=== PATIENT | female | born 1975 | race Caucasian/White ===

== ENCOUNTER → 2017-08-04 12:03 | Outpatient (CLI) | payer MEDICAID, SELFPAY ==
[2017-08-04 15:01] LABS: ALB/GLOB Ratio 0.8 RATIO (0.9-2.4); AST(SGOT) 16 U/L (15-37); Alanine Aminotransfer ALT/SGPT 27 U/L (13-56); Albumin, Serum 3.1 g/dL (3.2-5.0); Alkaline Phosphatase 51 U/L (45-117); Anion Gap 10 (5-15); BUN 5 mg/dL (7-18); BUN/Creat Ratio 9.7 RATIO (10-20); Calcium,Total 8.2 mg/dL (8.5-10.1); Chloride 106 mmol/L (98-107); Creatinine, Serum 0.52 mg/dL (0.55-1.02); EST Glomerular Filtration Rate 138 mL/min (>60); Est Glom Filt Rate - Afr Amer 168 mL/min (>60); Globulin 3.8 g/dL (2.2-4.2); Glucose 134 mg/dL (74-106); Potassium 3.1 mmol/L (3.5-5.1); Protein, Total 6.9 g/dL (6.4-8.2); Sodium Level 138 mmol/L (136-145)
== END ==
PROVIDERS: Visit Provider Obstetrics & Gynecology
DX: O10.011 Pre-existing essential hypertension complicating pregnancy, first trimester (principal)
CPT/HCPCS: 36415; 80053

== ENCOUNTER → 2017-08-06 00:08 | Outpatient (CLI) | payer MEDICAID, SELFPAY ==
[2017-08-06 01:37] LABS: Urine Protein (24 Hour) < 6.0 mg/dL (<11.9)
[2017-08-06 07:17] LABS: 24HR. UA Prot. Total Volume 2950 mL
== END ==
PROVIDERS: Family Provider Family Medicine; PCP Family Medicine; Visit Provider Obstetrics & Gynecology
DX: O10.011 Pre-existing essential hypertension complicating pregnancy, first trimester (principal); Z3A.00 Weeks of gestation of pregnancy not specified

== ENCOUNTER → 2017-08-15 13:04 | Outpatient (CLI) | payer MEDICAID, SELFPAY ==
[2017-08-15 14:08] LABS: Hematocrit 38.6 % (37-47); Hemoglobin 12.8 g/dl (12.0-15.0); Mean Corp Hgb Conc 33.2 g/gl (32-36); Mean Corpuscular Hgb 29.2 pg (27.0-32.0); Mean Corpuscular Volume 87.9 fL (81-99); Mean Platelet Vol. 9.7 fl (6.2-12.0); Platelet Count 254 K/mm3 (150-450); RBC Distribution Width CV 13.6 % (11.6-14.6); RBC Distribution Width SD 43.4 fl (35.1-43.9); Red Blood Count 4.39 M/mm3 (4.2-5.4); White Blood Count 10.4 K/mm3 (4.4-11.0)
[2017-08-15 14:09] LABS: Scan Indicated on CBC? Y/N NO
[2017-08-15 14:16] LABS: Glucose Challenge Gest 1H 50g 184 mg/dL (70-140); Potassium 3.2 mmol/L (3.5-5.1)
== END ==
PROVIDERS: Visit Provider Obstetrics & Gynecology
DX: O10.012 Pre-existing essential hypertension complicating pregnancy, second trimester (principal); Z3A.00 Weeks of gestation of pregnancy not specified
CPT/HCPCS: 36415; 82950; 84132; 85027

== ENCOUNTER 2017-08-21 20:51 | Emergency (ER) | payer MEDICAID, SELFPAY ==
[2017-08-21 20:52] VITALS: BP 147/88; PULSE 99; RESP 16; TEMP 37; O2SAT 98; BMI 35.5
--- NOTE | 2017-08-21 20:55 | EKG12_ITS ---
Test Reason : PALP Blood Pressure : / mmHG Vent. Rate : 087 BPM Atrial Rate : 087 BPM P-R Int : 128 ms QRS Dur : 088 ms QT Int : 388 ms P-R-T Axes : 063 032 027 degrees QTc Int : 466 ms Normal sinus rhythm Normal ECG Confirmed by ITA VICENTE MD ([id number]), photograph editor ARACELIS GREGORY ([id number] on 08/23/2017 3:30:35 PM Referred By: Confirmed By:ITA VICENTE MD
--- NOTE | 2017-08-21 21:05 | RAD_ITS ---
STUDY: X-RAY CHEST REASON FOR EXAM: Female, 42 years old. Palpitations TECHNIQUE: Single AP portable view of the chest. COMPARISON: None. FINDINGS: The lungs are clear and expanded. There is no demonstrated pleural abnormality. Normal size heart. Normal mediastinum and jackie. Normal visualized pulmonary arteries. Normal visualized aortic arch and descending thoracic aorta. Normal visualized thoracic spine. Normal visualized ribs, clavicles, and shoulders. There is no demonstrated abnormality of the visualized soft tissue structures of the upper abdomen. RAD/Chest 1 View (Portable) IMPRESSION: No acute cardiopulmonary disease. Electronically Signed: Bayron Keyes DO at 21:38 EDT , Service support ,
[2017-08-21 22:06] LABS: Absolute Neutrophil Count 9.6 X10^3/uL (2.0-7.7); Basophil# 0.02 X10^3/uL; Basophil% 0.1 % (0-1); Eosinophil# 0.16 X10^3/uL; Eosinophils% 1.2 % (0-5); Hematocrit 38.3 % (37-47); Hemoglobin 12.7 g/dl (12.0-15.0); Lymphocyte % 20.2 % (19-41); Mean Corp Hgb Conc 33.2 g/gl (32-36); Mean Corpuscular Hgb 29.2 pg (27.0-32.0); Mean Platelet Vol. 9.7 fl (6.2-12.0); Neutrophil # 9.62 X10^3/uL (2.7-7.7); Neutrophil % 72.1 % (47-70); Platelet Count 270 K/mm3 (150-450); RBC Distribution Width CV 13.5 % (11.6-14.6); RBC Distribution Width SD 43.5 fl (35.1-43.9); Red Blood Count 4.35 M/mm3 (4.2-5.4); White Blood Count 13.4 K/mm3 (4.4-11.0)
[2017-08-21 22:14] LABS: POSITIVE COUNT NO; POSITIVE DIFFERENTIAL NO; POSITIVE MORPHOLOGY NO
[2017-08-21 22:28] LABS: Anion Gap 8 (5-15); BUN 8 mg/dL (7-18); BUN/Creat Ratio 13.6 RATIO (10-20); Calcium,Total 8.8 mg/dL (8.5-10.1); Chloride 108 mmol/L (98-107); Creatinine, Serum 0.59 mg/dL (0.55-1.02); EST Glomerular Filtration Rate 119 mL/min (>60); Est Glom Filt Rate - Afr Amer 144 mL/min (>60); Estimated Creatinine Clearance 111.77 ml/min; Glucose 148 mg/dL (74-106); Potassium 3.4 mmol/L (3.5-5.1); Sodium Level 138 mmol/L (136-145)
[2017-08-21 23:01] LABS: D-Dimer Quantitative (DVT/PE) < 0.27 FEU/ug/m (0.27-0.49)
--- NOTE | 2017-08-22 00:39 | ED.VISSUMM ---
- ER Visit Summary Date of Service: 08/22/17 Chief Complaint: Palpitations, abdominal cramping History of Present Illness: The patient is a 42 F G 10 P5 16 week gestation presents with transient palpitations this afternoon. Also abdominal cramping. Denies trauma. Denies urinary symptoms. No vaginal bleeding or discharge. No chest pains. Complains of bilateral tingling of the hands digits 1 through 3. Similar symptoms with her other . Denies any dyspnea. Nonproductive cough. Tobacco history states she is quitting. Patient gestational hypertension on nifedipine 30 mg and also on a baby aspirin followed by Dr. Alejo. No other complaints. Physical Examination: General: Alert and oriented ?3, no acute distress HEENT: Normocephalic, atraumatic. Moist mucosa membranes Neck: supple, nontender. Cardiovascular: Regular rate and rhythm, no murmurs Respiratory: Normal breath sounds, symmetric, no distress Abdomen: Soft, nontender, nondistended Extremities: Nontender, no edema, pulses intact ?4. Positive Phalen's bilaterally. Neuro: no focal neurological deficits. Test Results: EKG sinus rate of 87, no ST or T-wave changes. WBC 13.4. Creatinine 0.5. Potassium 3.4. UA negative for infection. Troponin negative. D-dimer negative. Chest x-ray negative. Emergency Department Course and Treatment: Patient had initiated by triage workup. EKG sinus rate [address] or T-wave changes. heart tones obtained was 164. Labs noted a slight white count 13.4. Urine and chest x-ray negative for infection. After obtaining heart tones from nursing, patient decided she wanted to leave. She labs were already discussed with the patient. She did report elevated blood pressure, in triage 147/88. Gestational hypertension she is on nifedipine. Discussed with patient she will need to follow-up with her OB for adjustments as needed. Patient understands. She left without paperwork. Treatment Plan: [] Disposition: Discharge Impression: 1. Palpitations 2. Elevated blood pressure 3. Second trimester This note was generated with [employer], [employer] software. It may contain incorrect words, spelling, and punctuation that were not noted in review of the chart prior to signing ED Disposition - Plan for ED Patient: Disposition: Home or Assisted Living Chief Complaint: Palpitations Diagnosis: Palpitations, Elevated blood pressure affecting in second trimester, antepartum Instructions: ED Palpitations Referrals: Oswaldo Marroquin MD [Primary Care Provider] -
[2017-08-22 01:28] LABS: Bacteria 0 SEEN /hpf (None Seen); Mucous, Urine 0 SEEN /hpf (<or=2+); Red Blood Cells-Urine 0 SEEN /hpf (0-5); White Blood Cells 0 SEEN /hpf (0-5)
[2017-08-22 01:33] LABS: Color, Urine Yellow (Yellow); Glucose, Dipstick 50 mg/dl (Normal); Ketone-Dipstick Negative (Negative); Leukocyte Esterase-Dipstick Negative /ul (Negative); Nitrite-Dipstick Negative (Negative); Occult Blood-Urine 25 /ul (Negative); Protein-Dipstick Negative (Negative); Specific Gravity, Urine 1.015 (1.002-1.030); Urine Bilirubin Dipstick Negative (Negative); Urine Clarity Clear (Clear); Urine Urobilinogen Normal (Normal); Urine pH 6.5 (5.0 - 8.0)
[2017-08-22 01:39] LABS: Squamous Epithelial Cells - UA 10-25 SEEN /hpf (5-10)
[2017-08-22 01:46] VITALS: BP 138/79; PULSE 84; RESP 16; O2SAT 97; O2SAT 98
--- NOTE | 2017-08-22 01:49 | ED.RN ---
PT STATES SHE IS TIRED AND WANTS TO GO HOME. SHE WANTED TO HEAR HER BABY'S HEARTBEAT FIRST AND THEN IS LEAVING BEFORE HEARING ANY OF HER RESULTS.
[2017-08-22 01:53] VITALS: BP 148/87; PULSE 82; RESP 16; O2SAT 97
== END 2017-08-22 01:52 | disposition home or self-care (01) ==
LOC: ED 08-22 00:46
PROVIDERS: Emergency Provider Emergency Medicine; Family Provider Family Medicine; PCP Family Medicine
DX: O26.892 Other specified pregnancy related conditions, second trimester (principal); R00.2 Palpitations; O13.2 Gestational [pregnancy-induced] hypertension without significant proteinuria, second trimester; O09.522 Supervision of elderly multigravida, second trimester; O99.332 Smoking (tobacco) complicating pregnancy, second trimester; Z3A.16 16 weeks gestation of pregnancy
CPT/HCPCS: 71045; 80048; 81001; 84484; 85025; 85379; 93005; 99284; A4216

== ENCOUNTER → 2017-09-04 09:49 | Outpatient (CLI) | payer MEDICAID, SELFPAY ==
[2017-09-04 11:04] LABS: Glucose GTT-Gestation. Fasting 88 mg/dL (<105)
[2017-09-04 11:16] LABS: Potassium 3.5 mmol/L (3.5-5.1)
[2017-09-04 12:01] LABS: Glucose GTT-Gestational 1 Hr 216 mg/dL (<190)
[2017-09-04 12:52] LABS: Glucose GTT-Gestational 2 Hr 215 mg/dL (<165)
[2017-09-04 15:13] LABS: Glucose GTT-Gestational 3 Hr 64 L (<145)
== END ==
PROVIDERS: Family Provider Family Medicine; PCP Family Medicine; Visit Provider Obstetrics & Gynecology
DX: O24.912 Unspecified diabetes mellitus in pregnancy, second trimester (principal); E87.6 Hypokalemia
CPT/HCPCS: 36415; 82951; 82952; 84132

== ENCOUNTER 2017-09-14 06:59 | Emergency (ER) | payer MEDICAID, SELFPAY ==
[2017-09-14] VITALS (7 sets, daily range): BP systolic 118–163; BP diastolic 65–78; PULSE 70–90; RESP 16–22; TEMP 37.2; O2SAT 95–100; BMI 36.1
[2017-09-14 07:15] LABS: Bedside Glucose 121 mg/dL (70-110)
--- NOTE | 2017-09-14 07:29 | ED.VISSUMM ---
- ER Visit Summary Date of Service: 09/14/17 Chief Complaint: [] Facial numbness, History of Present Illness: The patient is a 42 F [] presents with facial numbness on the left side beginning 2 hours prior to arrival. Patient reports she is a smoker, at 19 weeks with diagnosed gestational diabetes and gestational hypertension. She is on nifedipine for her gestational hypertension started by her BOAT DETAILER. with 3 miscarriages and one stillborn (twins). She denies any head injury or falls. She reports her facial numbness has subsided prior to arrival. She denies any abdominal pain. She denies headache. She denies blurred vision. She denies lower extremity edema. Physical Examination: [] BP 163/76, heart rate 90, respiratory rate 16, pulse ox 99% on room air, which are 98.9. Morbidly obese female no acute distress. Cardiovascular exam is regular rate and rhythm. Lungs are clear to auscultation. Abdomen is soft, gravid, nontender. No lower extremity edema. NIH score is 0. Patient had plus 5 out of 5 bilateral upper and lower muscle strength. Sensation equally across the face, bilateral upper extremity, bilateral lower extremities. Test Results: [] heart rate: 144 Labs: CBC reveals white blood cell count 13.8 otherwise within normal limits. Electrolytes returned normal with exception of a potassium of 3.1. Glucose was 87. LFTs were normal. LDH was normal. Urinalysis was normal with no proteinuria. Emergency Department Course and Treatment: [] Patient received intravenous Zofran for nausea relief. She received a 1 L normal saline bolus. Because of the neurologic symptoms in the history of gestational hypertension she was given 2 g of intravenous magnesium. On repeat serial examinations her blood pressure ultimately dropped to 121/73. She became completely asymptomatic. She was given 40 mEq orally of potassium chloride. Hydralazine was ordered intravenously however was not administered secondary to the significant improvement in blood pressure with the magnesium. heart rate was within normal limits at 144. Patient was counseled regarding her diagnostic and laboratory findings and was reassured as she was slightly anxious about her blood pressure and symptoms. She is amenable to discharge and close follow-up. I attempted to contact the patient's BOAT DETAILER, Dr. Sanchez. I spoke with the covering physician Dr. Suazo. She will pass along the information to the BOAT DETAILER and provided no further suggestions for treatment or management. Treatment Plan: [] Follow-up with BOAT DETAILER, return if symptoms recur/worsen. Disposition: [] Discharge, stable. Impression: [] Gestational hypertension Hypokalemia Nausea Gestational diabetes This note was generated with Get[employer] Cloudation software. It may contain incorrect words, spelling, and punctuation that were not noted in review of the chart prior to signing ED Disposition - Plan for ED Patient: Chief Complaint: Numb/Ting Referrals: Oswaldo Marroquin MD [Primary Care Provider] -
--- NOTE | 2017-09-14 07:34 | ED.DCSUM_ITS ---
- ER Visit Summary Date of Service: 09/14/17 Chief Complaint: [] Facial numbness, History of Present Illness: The patient is a 42 F [] presents with facial numbness on the left side beginning 2 hours prior to arrival. Patient reports she is a smoker, at 19 weeks with diagnosed gestational diabetes and gestational hypertension. She is on nifedipine for her gestational hypertension started by her PROOF PLATE MAKER. with 3 miscarriages and one stillborn (twins). She denies any head injury or falls. She reports her facial numbness has subsided prior to arrival. She denies any abdominal pain. She denies headache. She denies blurred vision. She denies lower extremity edema. Physical Examination: [] BP 163/76, heart rate 90, respiratory rate 16, pulse ox 99% on room air, which are 98.9. Morbidly obese female no acute distress. Cardiovascular exam is regular rate and rhythm. Lungs are clear to auscultation. Abdomen is soft, gravid, nontender. No lower extremity edema. NIH score is 0. Patient had plus 5 out of 5 bilateral upper and lower muscle strength. Sensation equally across the face, bilateral upper extremity, bilateral lower extremities. Test Results: [] heart rate: 144 Labs: CBC reveals white blood cell count 13.8 otherwise within normal limits. Electrolytes returned normal with exception of a potassium of 3.1. Glucose was 87. LFTs were normal. LDH was normal. Urinalysis was normal with no proteinuria. Emergency Department Course and Treatment: [] Patient received intravenous Zofran for nausea relief. She received a 1 L normal saline bolus. Because of the neurologic symptoms in the history of gestational hypertension she was given 2 g of intravenous magnesium. On repeat serial examinations her blood pressure ultimately dropped to 121/73. She became completely asymptomatic. She was given 40 mEq orally of potassium chloride. Hydralazine was ordered intravenously however was not administered secondary to the significant improvement in blood pressure with the magnesium. heart rate was within normal limits at 144. Patient was counseled regarding her diagnostic and laboratory findings and was reassured as she was slightly anxious about her blood pressure and symptoms. She is amenable to discharge and close follow-up. I attempted to contact the patient's PROOF PLATE MAKER, Dr. Sanchez. I spoke with the covering physician Dr. Suazo. She will pass along the information to the PROOF PLATE MAKER and provided no further suggestions for treatment or management. Treatment Plan: [] Follow-up with PROOF PLATE MAKER, return if symptoms recur/worsen. Disposition: [] Discharge, stable. Impression: [] Gestational hypertension Hypokalemia Nausea Gestational diabetes This note was generated with [employer]ive Biasation software. It may contain incorrect words, spelling, and punctuation that were not noted in review of the chart prior to signing ED Disposition - Plan for ED Patient: Chief Complaint: Numb/Ting Referrals: Oswaldo Marroquin MD [Primary Care Provider] -
[2017-09-14 07:38] LABS: Mucous, Urine 0 SEEN /hpf (<or=2+); Red Blood Cells-Urine 0 SEEN /hpf (0-5); White Blood Cells 0 SEEN /hpf (0-5)
[2017-09-14 07:40] LABS: Color, Urine Yellow (Yellow); Glucose, Dipstick Normal (Normal); Ketone-Dipstick Negative (Negative); Leukocyte Esterase-Dipstick Negative /ul (Negative); Nitrite-Dipstick Negative (Negative); Occult Blood-Urine 10 /ul (Negative); Protein-Dipstick Negative (Negative); Specific Gravity, Urine 1.015 (1.002-1.030); Urine Bilirubin Dipstick Negative (Negative); Urine Clarity Clear (Clear); Urine Urobilinogen Normal (Normal)
[2017-09-14 07:47] LABS: Bacteria RARE /hpf (None Seen); Squamous Epithelial Cells - UA 0-5 SEEN /hpf (5-10)
[2017-09-14] MEDS: 0.9% Normal Saline 1,000 ML 1000 ML IV (07:48)
--- NOTE | 2017-09-14 07:56 | ED.RN ---
PER DR SIMON HOLD APRESOLINE AT THIS TIME
[2017-09-14 08:00] LABS: Absolute Lymphocyte Count 1.71 X10^3/ul (0.83-4.51); Basophil# 0.02 X10^3/uL; Basophil% 0.1 % (0-1); Eosinophil# 0.12 X10^3/uL; Eosinophils% 0.9 % (0-5); Hematocrit 37.5 % (37-47); Hemoglobin 12.8 g/dl (12.0-15.0); Lymphocyte # 1.71 X10^3/ul (4.0); Lymphocyte % 12.4 % (19-41); Mean Corp Hgb Conc 34.1 g/gl (32-36); Mean Corpuscular Hgb 29.8 pg (27.0-32.0); Mean Corpuscular Volume 87.4 fL (81-99); Mean Platelet Vol. 9.4 fl (6.2-12.0); Monocyte# 0.94 X10^3/uL; Monocyte% 6.8 % (0-10); Neutrophil # 10.95 X10^3/uL (2.7-7.7); Neutrophil % 79.3 % (47-70); POSITIVE COUNT NO; POSITIVE DIFFERENTIAL NO; POSITIVE MORPHOLOGY NO; Platelet Count 251 K/mm3 (150-450); RBC Distribution Width CV 13.5 % (11.6-14.6); RBC Distribution Width SD 42.9 fl (35.1-43.9); Red Blood Count 4.29 M/mm3 (4.2-5.4); White Blood Count 13.8 K/mm3 (4.4-11.0)
[2017-09-14 08:15] LABS: ALB/GLOB Ratio 0.8 RATIO (0.9-2.4); AST(SGOT) 14 U/L (15-37); Alanine Aminotransfer ALT/SGPT 28 U/L (13-56); Albumin, Serum 2.8 g/dL (3.2-5.0); Alkaline Phosphatase 45 U/L (45-117); Anion Gap 7 (5-15); BUN 4 mg/dL (7-18); BUN/Creat Ratio 11.7 RATIO (10-20); Calcium,Total 8.2 mg/dL (8.5-10.1); Chloride 108 mmol/L (98-107); Creatinine, Serum 0.34 mg/dL (0.55-1.02); EST Glomerular Filtration Rate 222 mL/min (>60); Est Glom Filt Rate - Afr Amer 268 mL/min (>60); Estimated Creatinine Clearance 193.96 ml/min; Globulin 3.7 g/dL (2.2-4.2); Glucose 87 mg/dL (74-106); LDH 114 U/L (84-246); Potassium 3.1 mmol/L (3.5-5.1); Protein, Total 6.5 g/dL (6.4-8.2); Sodium Level 139 mmol/L (136-145); Total Bilirubin < 0.10 mg/dL (0.20-1.00)
--- NOTE | 2017-09-14 09:37 | ED.DEP ---
ED Disposition - Plan for ED Patient: Disposition: Home or Assisted Living Chief Complaint: Numb/Ting Instructions: Controlling High Blood Pressure, ED Potassium Deficiency Referrals: Oswaldo Marroquin MD [Primary Care Provider] -
== END 2017-09-14 09:57 | disposition home or self-care (01) ==
PROVIDERS: Emergency Provider Emergency Medicine; Family Provider Family Medicine; PCP Family Medicine
DX: O13.2 Gestational [pregnancy-induced] hypertension without significant proteinuria, second trimester (principal); O24.419 Gestational diabetes mellitus in pregnancy, unspecified control; E87.6 Hypokalemia; R11.0 Nausea; O99.212 Obesity complicating pregnancy, second trimester; E66.01 Morbid (severe) obesity due to excess calories; O09.522 Supervision of elderly multigravida, second trimester; O99.332 Smoking (tobacco) complicating pregnancy, second trimester; F17.200 Nicotine dependence, unspecified, uncomplicated; Z3A.19 19 weeks gestation of pregnancy
CPT/HCPCS: 80053; 81001; 82962; 83615; 85025; 96365; 96366; 99283; J7030; A4216

== ENCOUNTER 2017-11-04 10:55 | Outpatient (CLI) | payer MEDICAID, SELFPAY ==
[2017-11-04 11:09] VITALS: BMI 35.9
--- NOTE | 2017-11-04 12:04 | OB.TRI.NOTE ---
- Problem List (1) Decreased movement Status: Acute Qualifiers: Fetus number: single or unspecified fetus Trimester: second trimester Qualified Code(s): O36.8120 - Decreased movements, second trimester, not applicable or unspecified (2) 26 weeks gestation of Status: Acute History of Present Illness Date of Service: 11/04/17 Was patient seen by the physician?: No Reason For Visit: DECREASED MOVEMNET Date of Service: 11/04/17 Final ROYER: 02/07/18 Gestational age: 26 Weeks and 3 Days History of Present Illness: 42yo @ 26 3/7 wga presents with c/o decreased movement. No other complaints. Home Medications Medication Instructions Recorded Nifedipine [Nifedipine ER] 30 mg PO DAILY 09/14/17 [id number]/FA/Omega3/Dha/Fish Oil 2 each PO DAILY 09/14/17 [ Gummies] Allergies cefazolin sodium [From Ancef] Allergy (Verified 09/14/17 07:02) Hives - Pertinent Past Medical History Medical History: Past Medical History (Last Updated 11/04/17 @ 12:14 by Obdulia Suazo MD) Chronic hypertension (Acute) Chronic hypertension affecting Gestational diabetes mellitus (GDM) Surgical History: Past Surgical History (Last Updated 11/04/17 @ 12:14 by Obdulia Suazo MD) Previous section Physical Exam Vitals: BP 121/64 HR 82 NST - FHR Rate Baby A Baseline: 145 Variability:: Moderate Accelerations:: 15 x 15 Decelerations:: None NST Reactive:: Yes FHR Category:: Category I Uterine Activity:: none Impression/Plan 42yo @ 26 3/7wga with decreased movement, Cat II FHR -FHR AGA, -Patient reported movement after arrival -Will d/c home, kick count sheet reviewed by nurse
--- NOTE | 2017-11-04 12:16 | OB.TRI.HP_ITS ---
- Problem List (1) Decreased movement Status: Acute Qualifiers: Fetus number: single or unspecified fetus Trimester: second trimester Qualified Code(s): O36.8120 - Decreased movements, second trimester, not applicable or unspecified (2) 26 weeks gestation of Status: Acute History of Present Illness Date of Service: 11/04/17 Was patient seen by the physician?: No Reason For Visit: DECREASED MOVEMNET Date of Service: 11/04/17 Final ROYER: 02/07/18 Gestational age: 26 Weeks and 3 Days History of Present Illness: 42yo @ 26 3/7 wga presents with c/o decreased movement. No other complaints. Home Medications Medication Instructions Recorded Nifedipine [Nifedipine ER] 30 mg PO DAILY 09/14/17 [id number]/FA/Omega3/Dha/Fish Oil 2 each PO DAILY 09/14/17 [ Gummies] Allergies cefazolin sodium [From Ancef] Allergy (Verified 09/14/17 07:02) Hives - Pertinent Past Medical History Medical History: Past Medical History (Last Updated 11/04/17 @ 12:14 by Obdulia Suazo MD) Chronic hypertension (Acute) Chronic hypertension affecting Gestational diabetes mellitus (GDM) Surgical History: Past Surgical History (Last Updated 11/04/17 @ 12:14 by Obdulia Suazo MD ) Previous section Physical Exam Vitals: BP 121/64 HR 82 NST - FHR Rate Baby A Baseline: 145 Variability:: Moderate Accelerations:: 15 x 15 Decelerations:: None NST Reactive:: Yes FHR Category:: Category I Uterine Activity:: none Impression/Plan 42yo @ 26 3/7wga with decreased movement, Cat II FHR -FHR AGA, -Patient reported movement after arrival -Will d/c home, kick count sheet reviewed by nurse
== END 2017-11-04 12:15 | disposition home or self-care (01) ==
LOC: LAB 11:03 → WP 11:04
PROVIDERS: Family Provider Family Medicine; PCP Family Medicine; Visit Provider Obstetrics & Gynecology
DX: O36.8120 Decreased fetal movements, second trimester, not applicable or unspecified (principal); O34.219 Maternal care for unspecified type scar from previous cesarean delivery; Z86.32 Personal history of gestational diabetes; Z3A.26 26 weeks gestation of pregnancy
CPT/HCPCS: 59025; 59050; 99218; G0378

== ENCOUNTER → 2017-11-15 11:50 | Outpatient (CLI) | payer MEDICAID, SELFPAY ==
--- NOTE | 2017-11-15 11:50 | DT_ITS ---
This patient was seen during an EMR downtime November 13, 2017 - November 20, 2017. This patient may have a combination of paper and electronic documentation or all paper documentation. All documentation is viewable within the e-chart portion of [employer] for each patient visit.
== END ==
PROVIDERS: Family Provider Family Medicine; PCP Family Medicine; Visit Provider Obstetrics & Gynecology
DX: Z34.83 Encounter for supervision of other normal pregnancy, third trimester (principal)
CPT/HCPCS: 36415; 86850

== ENCOUNTER 2018-01-01 17:40 | Outpatient (CLI) | payer MEDICARE, MEDICAID, SELFPAY ==
[2018-01-01 19:15] LABS: Hematocrit 36.1 % (37-47); Hemoglobin 11.8 g/dl (12.0-15.0); Mean Corp Hgb Conc 32.7 g/gl (32-36); Mean Corpuscular Hgb 26.4 pg (27.0-32.0); Mean Corpuscular Volume 80.8 fL (81-99); Mean Platelet Vol. 9.7 fl (6.2-12.0); Platelet Count 225 K/mm3 (150-450); RBC Distribution Width CV 14.3 % (11.6-14.6); RBC Distribution Width SD 42.5 fl (35.1-43.9); Red Blood Count 4.47 M/mm3 (4.2-5.4); White Blood Count 15.1 K/mm3 (4.4-11.0)
[2018-01-01 19:20] LABS: Scan Indicated on CBC? Y/N NO
[2018-01-01 19:23] LABS: AST(SGOT) 10 U/L (15-37); Alanine Aminotransfer ALT/SGPT 11 U/L (13-56); Creatinine, Serum 0.39 mg/dL (0.55-1.02); EST Glomerular Filtration Rate 189 mL/min (>60); Est Glom Filt Rate - Afr Amer 228 mL/min (>60); Uric Acid 3.8 mg/dL (2.6-6.0)
[2018-01-01 19:23] LABS: Protein, Urine (Random) 12.8 mg/dL (<11.9); Protein:Creat Ratio 309 mg/g CRE (0-200)
[2018-01-01 19:27] LABS: Partial Thromboplast Time 29.3 Seconds (24.1-36.2); Prothrombin Time (Protime)PT. 13.6 SECONDS (11.7-14.9)
[2018-01-01 20:04] LABS: Amphetamine Urine VISTA NEGATIVE (<1000 ng/mL); Barbiturate Urine VISTA NEGATIVE (< 200 ng/mL); Benzodiazepine Urine VISTA NEGATIVE (< 200 ng/mL); Cocaine Urine VISTA NEGATIVE (< 300 ng/mL); Ecstacy Urine VISTA NEGATIVE (< 500 ng/mL); Methadone Urine VISTA NEGATIVE (< 300 ng/mL); PCP Urine VISTA NEGATIVE (< 25 ng/mL); THC Urine VISTA NEGATIVE (< 50 ng/mL); Vista UDS pH Range 7
[2018-01-01 20:52] VITALS: BMI 35.9
--- NOTE | 2018-01-04 08:44 | OB.TRI.NOTE ---
History of Present Illness Date of Service: 01/01/18 Was patient seen by the physician?: No Reason For Visit: R/O LABOR Date of Service: 01/01/18 Final ROYER: 02/07/18 Gestational age: 34 Weeks and 5 Days History of Present Illness: 34+ week intrauterine presents with transient contractions. Also having problems with cramping back pain and headache. Prior for placental abruption and desires this . care remarkable for smoking and advanced maternal age. She also has gestational diabetes which is diet controlled. Allergies cefazolin sodium [From Anc] Allergy (Verified 09/14/17 07:02) Hives - Pertinent Past Medical History Medical History: Past Medical History (Last Updated 11/04/17 @ 12:14 by Obdulia Suazo MD) Chronic hypertension (Acute) Chronic hypertension affecting Gestational diabetes mellitus (GDM) Surgical History: Past Surgical History (Last Updated 11/04/17 @ 12:14 by Obdulia Suazo MD) Previous section NST - FHR Rate Baby A NST Reactive:: Yes FHR Category:: Category I Impression/Plan 35+ week with transient contractions. PIH labs okay. Blood pressures okay. Cervix nonthreatening and no change after observation. Reactive nonstress test. Will release to home with routine instructions.
--- NOTE | 2018-01-04 08:50 | OB.TRI.HP_ITS ---
History of Present Illness Date of Service: 01/01/18 Was patient seen by the physician?: No Reason For Visit: R/O LABOR Date of Service: 01/01/18 Final ROYER: 02/07/18 Gestational age: 34 Weeks and 5 Days History of Present Illness: 34+ week intrauterine presents with transient contractions. Also having problems with cramping back pain and headache. Prior for placental abruption and desires this . care remarkable for smoking and advanced maternal age. She also has gestational diabetes which is diet controlled. Allergies cefazolin sodium [From Anc] Allergy (Verified 09/14/17 07:02) Hives - Pertinent Past Medical History Medical History: Past Medical History (Last Updated 11/04/17 @ 12:14 by Obdulia Suazo MD) Chronic hypertension (Acute) Chronic hypertension affecting Gestational diabetes mellitus (GDM) Surgical History: Past Surgical History (Last Updated 11/04/17 @ 12:14 by Obdulia Suazo MD ) Previous section NST - FHR Rate Baby A NST Reactive:: Yes FHR Category:: Category I Impression/Plan 35+ week with transient contractions. PIH labs okay. Blood pressures okay. Cervix nonthreatening and no change after observation. Reactive nonstress test. Will release to home with routine instructions.
== END 2018-01-01 21:15 | disposition home or self-care (01) ==
LOC: WPOUT 18:45 → WP 18:45
PROVIDERS: Family Provider Family Medicine; PCP Family Medicine; Visit Provider Obstetrics & Gynecology
DX: O34.219 Maternal care for unspecified type scar from previous cesarean delivery (principal); Z3A.34 34 weeks gestation of pregnancy; O99.333 Smoking (tobacco) complicating pregnancy, third trimester; O09.523 Supervision of elderly multigravida, third trimester; O24.410 Gestational diabetes mellitus in pregnancy, diet controlled
CPT/HCPCS: 59025; 59050; 80307; 82565; 82570; 84156; 84450; 84460; 84550; 85027; 85610; 85730; 99218; G0378

== ENCOUNTER 2018-01-08 16:40 | Outpatient (CLI) | payer MEDICARE, MEDICAID, SELFPAY ==
[2018-01-08 16:45] VITALS: BMI 36.6
[2018-01-08 17:44] LABS: Hematocrit 36.6 % (37-47); Hemoglobin 12.3 g/dl (12.0-15.0); Mean Corp Hgb Conc 33.6 g/gl (32-36); Mean Corpuscular Hgb 26.7 pg (27.0-32.0); Mean Corpuscular Volume 79.4 fL (81-99); Mean Platelet Vol. 10.1 fl (6.2-12.0); Platelet Count 281 K/mm3 (150-450); RBC Distribution Width CV 14.5 % (11.6-14.6); RBC Distribution Width SD 41.4 fl (35.1-43.9); Red Blood Count 4.61 M/mm3 (4.2-5.4); White Blood Count 16.1 K/mm3 (4.4-11.0)
[2018-01-08 17:49] LABS: Scan Indicated on CBC? Y/N NO
[2018-01-08 17:59] LABS: AST(SGOT) 12 U/L (15-37); Alanine Aminotransfer ALT/SGPT 14 U/L (13-56); Creatinine, Serum 0.26 mg/dL (0.55-1.02); EST Glomerular Filtration Rate 305 mL/min (>60); Est Glom Filt Rate - Afr Amer 369 mL/min (>60); Estimated Creatinine Clearance 253.64 ml/min; Uric Acid 3.4 mg/dL (2.6-6.0)
[2018-01-08 18:00] LABS: Partial Thromboplast Time 31.4 Seconds (24.1-36.2)
--- NOTE | 2018-01-08 18:29 | NURSING ---
pt evaluated in office by Dr Alejo prior to coming to the floor
--- NOTE | 2018-01-10 08:22 | OB.TRI.NOTE ---
History of Present Illness Date of Service: 01/08/18 Was patient seen by the physician?: No Reason For Visit: R/O PIH Date of Service: 01/08/18 Final ROYER: 02/07/18 Gestational age: 35 Weeks and 5 Days History of Present Illness: 35+ week IUP with elevated BPs in office. Pt anxious as she continues to have difficulty finding housing for her family and is residing at [facility]. Good movement. PNC remarkable for diet controlled GDM but has not been checking blood sugars the past few days. Allergies cefazolin sodium [From Anc] Allergy (Verified 09/14/17 07:02) Hives - Pertinent Past Medical History Medical History: Past Medical History (Last Updated 11/04/17 @ 12:14 by Obdulia Suazo MD) Chronic hypertension (Acute) Chronic hypertension affecting Gestational diabetes mellitus (GDM) Surgical History: Past Surgical History (Last Updated 11/04/17 @ 12:14 by Obdulia Suazo MD) Previous section NST - FHR Rate Baby A NST Reactive:: Yes FHR Category:: Category I Impression/Plan 35+ week IUP with elevated BPs in office. Normal on L and D and PIH labs normal. Reactive NST. Release with routine follow-up.
--- NOTE | 2018-01-10 08:25 | OB.TRI.HP_ITS ---
History of Present Illness Date of Service: 01/08/18 Was patient seen by the physician?: No Reason For Visit: R/O PIH Date of Service: 01/08/18 Final ROYER: 02/07/18 Gestational age: 35 Weeks and 5 Days History of Present Illness: 35+ week IUP with elevated BPs in office. Pt anxious as she continues to have difficulty finding housing for her family and is residing at [facility]. Good movement. PNC remarkable for diet controlled GDM but has not been checking blood sugars the past few days. Allergies cefazolin sodium [From Anc] Allergy (Verified 09/14/17 07:02) Hives - Pertinent Past Medical History Medical History: Past Medical History (Last Updated 11/04/17 @ 12:14 by Obdulia Suazo MD) Chronic hypertension (Acute) Chronic hypertension affecting Gestational diabetes mellitus (GDM) Surgical History: Past Surgical History (Last Updated 11/04/17 @ 12:14 by Obdulia Suazo MD ) Previous section NST - FHR Rate Baby A NST Reactive:: Yes FHR Category:: Category I Impression/Plan 35+ week IUP with elevated BPs in office. Normal on L and D and PIH labs normal. Reactive NST. Release with routine follow-up.
== END 2018-01-08 18:40 | disposition home or self-care (01) ==
LOC: WPOUT 16:44 → WP 16:45
PROVIDERS: Family Provider Family Medicine; PCP Family Medicine; Visit Provider Obstetrics & Gynecology
DX: O26.893 Other specified pregnancy related conditions, third trimester (principal); R03.0 Elevated blood-pressure reading, without diagnosis of hypertension; O24.410 Gestational diabetes mellitus in pregnancy, diet controlled; O34.219 Maternal care for unspecified type scar from previous cesarean delivery; O09.523 Supervision of elderly multigravida, third trimester; Z3A.35 35 weeks gestation of pregnancy
CPT/HCPCS: 36415; 59025; 59050; 82565; 84450; 84460; 84550; 85027; 85610; 85730; 99218; G0378; G0379

== ENCOUNTER 2018-01-12 15:15 | Outpatient (CLI) | payer MEDICAID, SELFPAY ==
[2018-01-12 15:25] VITALS: BMI 37.3
[2018-01-12] MEDS: Betamethasone/Betamethasone 30 MG/5 ML Vial 12 MG IM (15:33)
--- NOTE | 2018-01-12 20:00 | OB.TRI.NOTE ---
- Problem List (1) 36 weeks gestation of Status: Acute (2) Chronic hypertension Status: Acute History of Present Illness Date of Service: 01/12/18 Was patient seen by the physician?: No Reason For Visit: CELESTONE History of Present Illness: 42yo at 36+ weeks gestation with h/o uncontrolled chronic hypertension and gestational diabetes sent from the office for Celestone for anticipated delivery in the next 7 days. Allergies cefazolin sodium [From Anc] Allergy (Verified 01/12/18 15:41) Hives - Pertinent Past Medical History Medical History: Past Medical History (Last Updated 11/04/17 @ 12:14 by Obdulia Suazo MD) Chronic hypertension (Acute) Chronic hypertension affecting Gestational diabetes mellitus (GDM) Surgical History: Past Surgical History (Last Updated 11/04/17 @ 12:14 by Obdulia Suazo MD) Previous section Impression/Plan Celestone given -Preeclamptic labs pending from office already -Pt to return in 24h for repeat Betamethasone injection
== END 2018-01-12 15:45 | disposition home or self-care (01) ==
LOC: WPOUT 15:19 → WP 15:20
PROVIDERS: Family Provider Family Medicine; PCP Family Medicine; Visit Provider Obstetrics & Gynecology
DX: O10.913 Unspecified pre-existing hypertension complicating pregnancy, third trimester (principal); O09.523 Supervision of elderly multigravida, third trimester; O34.219 Maternal care for unspecified type scar from previous cesarean delivery; O24.419 Gestational diabetes mellitus in pregnancy, unspecified control; Z3A.36 36 weeks gestation of pregnancy
CPT/HCPCS: 96372; 99218; G0378; J0702

== ENCOUNTER 2018-01-13 14:10 | Outpatient (CLI) | payer MEDICAID, SELFPAY ==
[2018-01-13 14:48] VITALS: BMI 37.3
[2018-01-13] MEDS: Betamethasone/Betamethasone 30 MG/5 ML Vial 12 MG IM (15:03)
--- NOTE | 2018-01-13 20:00 | OB.TRI.NOTE ---
- Problem List (1) 36 weeks gestation of Status: Acute (2) Chronic hypertension Status: Acute History of Present Illness Date of Service: 01/13/18 Was patient seen by the physician?: No Reason For Visit: CELESTONE SHOT Final ROYER Source: US <20 weeks Gestational age: 36+ History of Present Illness: 42yo multiparous female at 36+ weeks gestation presents for second Betamethasone injection. She has a h/o chronic hypertension and gestational diabetes. Allergies cefazolin sodium [From Ancef] Allergy (Verified 01/12/18 15:41) Hives - Pertinent Past Medical History Medical History: Past Medical History (Last Updated 11/04/17 @ 12:14 by Obdulia Suazo MD) Chronic hypertension (Acute) Chronic hypertension affecting Gestational diabetes mellitus (GDM) Surgical History: Past Surgical History (Last Updated 11/04/17 @ 12:14 by Obdulia Suazo MD) Previous section Impression/Plan Dx. chronic hypertension complicated , third trimester Celestone given d/c home
== END 2018-01-13 16:15 | disposition home or self-care (01) ==
LOC: WPOUT 14:12 → WP 17:24
PROVIDERS: Family Provider Family Medicine; PCP Family Medicine; Visit Provider Obstetrics & Gynecology
DX: O10.913 Unspecified pre-existing hypertension complicating pregnancy, third trimester (principal); O09.523 Supervision of elderly multigravida, third trimester; O34.219 Maternal care for unspecified type scar from previous cesarean delivery; O24.419 Gestational diabetes mellitus in pregnancy, unspecified control; Z3A.36 36 weeks gestation of pregnancy
CPT/HCPCS: 59025; 59050; 99218; G0378; J0702

== ENCOUNTER → 2018-01-15 16:25 | Outpatient (CLI) | payer MEDICARE, MEDICAID, SELFPAY ==
[2018-01-15 18:56] LABS: Group B Strep DNA By PCR Negative (Negative); Internal Control PASS; Probe Check PASS; Specimen Processing Control PASS
== END ==
PROVIDERS: Visit Provider Obstetrics & Gynecology
DX: Z36.85 Encounter for antenatal screening for Streptococcus B (principal)
CPT/HCPCS: 87081; 87653

== ENCOUNTER 2018-01-19 06:44 | Inpatient (IN) | payer MEDICARE, MEDICAID, SELFPAY ==
[2018-01-19] VITALS (10 sets, daily range): BP systolic 119–165; BP diastolic 60–96; PULSE 62–95; RESP 16–18; TEMP 36.4–37.2; O2SAT 93–99; BMI 36.9
[2018-01-19] MEDS: Lactated Ringers 1,000 ML 50 ML IV ×3 (07:45→16:45)
[2018-01-19 08:04] LABS: Hematocrit 37.8 % (37-47); Hemoglobin 12.1 g/dl (12.0-15.0); Mean Corpuscular Hgb 25.5 pg (27.0-32.0); Mean Corpuscular Volume 79.7 fL (81-99); Mean Platelet Vol. 10.3 fl (6.2-12.0); Platelet Count 229 K/mm3 (150-450); RBC Distribution Width CV 14.8 % (11.6-14.6); RBC Distribution Width SD 43.3 fl (35.1-43.9); Red Blood Count 4.74 M/mm3 (4.2-5.4); Scan Indicated on CBC? Y/N NO; White Blood Count 13.3 K/mm3 (4.4-11.0)
[2018-01-19] MEDS: Oxytocin 30 units/NS 500 ml 30 UNITS/500 ML IV.SOLN IV (08:05)
[2018-01-19] MEDS: Labetalol 100 MG/20 ML Vial 20 MG IV (08:19)
[2018-01-19 09:48] LABS: International Normalized Ratio 0.9; Prothrombin Time (Protime)PT. 12.6 SECONDS (11.7-14.9)
[2018-01-19 09:49] LABS: Partial Thromboplast Time 30.3 Seconds (24.1-36.2)
[2018-01-19] MEDS: Labetalol 100 MG Tablet PO (10:00)
[2018-01-19 10:06] LABS: Protein, Urine (Random) 12.2 mg/dL (<11.9); Protein:Creat Ratio 194 mg/g CRE (0-200)
[2018-01-19 10:27] LABS: AST(SGOT) 11 U/L (15-37); Alanine Aminotransfer ALT/SGPT 23 U/L (13-56); Creatinine, Serum 0.34 mg/dL (0.55-1.02); EST Glomerular Filtration Rate 225 mL/min (>60); Est Glom Filt Rate - Afr Amer 272 mL/min (>60); Estimated Creatinine Clearance 193.96 ml/min; Uric Acid 3.6 mg/dL (2.6-6.0)
[2018-01-19 10:41] LABS: Bedside Glucose 201 mg/dL (70-110)
[2018-01-19 11:35] LABS: Bedside Glucose 100 mg/dL (70-110)
[2018-01-19 13:26] LABS: Bedside Glucose 70 mg/dL (70-110)
--- NOTE | 2018-01-19 17:03 | PCM.PN.BLA ---
Progress Note LABOR INDUCTION PROGRESS NOTE [id number] female PIH, GDM induction for BPs. Epidural which was placed earlier has been dosed. Still anxious re pain and thinks she is feeling a little . Able to feel her legs. Vaelar cath induction and still in place. Have not been able to inc Pitocin as difficult to monitor FHR 2/2 body habitus. AVSS Avelar bulb deflated and removed. CX: 3/75/high/anterior moderately soft. IUPC and scalp lead placed. FHR with deep deceleration lasting less than 30 sec to 60-80s , with pt on back. Resolved with position change to L side , then to tilt to L side IFM then 140-150 with small accels. min variability. earlies with UCs. UCs approx q 5 mins A/P: 37 2/7 wk PIH. Good response of BPs to Labetalol given and now with BID dosing. epidural dosed and in place. High blood sugar, but no start of insulin 2/2 repeat blood sugar in 100's. Prodromal labor induction. Pitocin then to Avelar bulb and pitocin with AROM at time of Avelar insertion. Avelar removed to allow IUPC and scalp lead, continue Pitocin induction Anticipate .
[2018-01-19] MEDS: Oxytocin 30 units/NS 500 ml 30 UNITS/500 ML IV.SOLN 167 UNITS IV ×2 (18:06→20:30)
--- NOTE | 2018-01-19 18:49 | OP.PCM_ITS ---
Operative Report Date of Procedure: 01/19/18 PROCEDURE: Repeat C section. Bilateral tubal occlusion, Filshie clips Preoperative diagnosis: 39 wk EGA Induction of labor for PIH Prior C section, planned 3 cm. Stat C section for repetitive deep variable decelerations, nonreassuring FHT. Decreased variability. Gestational diabetes mellitus Sterilization request Postop diagnosis: 39 wk EGA Induction of labor for PIH Prior C section, planned 3 cm. Stat C section for repetitive deep variable decelerations, nonreassuring FHT. Decreased variability. Gestational diabetes mellitus Sterilization request Anesthesia: epidural, Shobha Ashby MD Surgeon: Chloé Patterson MD Pouncing Lathe Operator: Olamide Kennedy MD EBL 600 cc Complications: none Drains: Avelar draining copious clear yellow urine Fluids: replacement LR Findings: Anterior placenta. clear fluid was noted. Turcios viable female in vertex presentation. Apgars 9/9, Baby weight: 7# 0.5 oz. There were normal appearing uterus, fallopian tubes and ovaries bilaterally. PATH: Routine cord gases were sent. Placenta to path for evaluation. Narrative account: Quickly advised C/S needed for nonreassuring FHT. Deep recurrent variables. The patient was taken to the Operating room with an IV running, Avelar catheter in place and epidural catheter in place. The IFM reconnected. FHR in 140-150s then. Continued deep variables. She was positioned to dorsal supine position with leftward displacement of the uterus. A vaginal prep was performed. The was prepped and draped in the usual sterile fashion. Once the epidural was deemed adequate, a Pfannenstiel skin incision was created using the knife ( through the prior skin incision scar). The incision was carried down to the rectus fascia using the knife. The fascial incision was extended bilaterally blunt dissection. The rectus abdominis muscles were widely in the midline and the peritoneum was identified and entered by blunt dissection high in the incision. The peritoneum was stretched laterally and a bladder blade was inserted. The uterine incision was then created using Metzenbaum scissors and the uterus was entered using blunt dissection by mellowing machine operator's fingertips. An anterior placenta was encountered and began to extrude through the uterine incision. The operators fingertips were used to extend the uterine incision by blunt dissection in a caudad- cephalad orientation . The vertex was then delivered atraumatically through the incision. The OP and nares were bulb suctioned on the abdomen. The shoulders delivered easily. The cord was clamped x two and cut. The infant was handed off to the nurse awaiting delivery after briefly showing her to her mother and mother's support person. The baby had a spontaneous cry. The placenta was then delivered. The uterus was exteriorized and cleared of clots and debris . The uterine incision was repaired with 1 Vicryl in a running locked fashion. A second imbricating layer was then placed, using 1 Monocryl in running nonlocked fashion. Bovie cautery was used to treat any bleeding areas . Several horizontal mattress stitches of 1 Vicryl were used for hemostasis along the incision. Excellent hemostasis was noted. Attention was turned to the bilateral tubal occlusion. A Filshie clip was firmly applied to the R fallopian tube at a relatively avascular midportion. In a similar manner the L fallopian tube was tented up and a Filshie clip was firmly applied a the relatively avascular midportion. Good blanching effect was noted at both fallopian tubes. At this point the uterus , fallopian tubes and ovaries were returned to the abdominal cavity. The gutters were cleared of clots and debris and the incision at the uterus was inspected. Excellent hemostasis was noted. Sonja was dusted over the incision. The peritoneal edges were reapproximated in the midline with a running suture of 1 Vicryl . the rectus muscles were not reapproximated due to wide diastasis noted. Sonja was dusted over this layer. Excellent hemostasis was noted. The fascia was closed in a running nonlocked fashion with a Stratofix. The Subcutaneous fatty tissue was Bovie cauterized as needed for hemostasis. This layer was then reapproximated with a single layer of running 3-0 Vicryl to eliminate space. Sonja was dusted along this layer also. The skin edges were closed in a Subcuticular stitch of 4-0 Vicryl. The incision was cleansed. Cavilon, Steristrips, and a Mepilex dressing were applied to the skin . The patient was then transferred to the recovery room bed in stable condition after tolerating the procedure well. Sponge, lap, needle and instrument counts correct times two. Medications given preop and intraoperatively included: Clindamycin 900 mg IV and Gentamicin 5 mg/kg were given in the operating room when available. The patient also received Pitocin given IV after cord clamp, and Toradol 30 mg IV times one. For a complete listing of medications given preop and intraoperatively, please see the anesthesia record.
--- NOTE | 2018-01-19 19:29 | PLAC_PTH ---
PATIENT: YASMIN TEMPLE LOC: [facility] U#:[id number] AGE/SX: 42/F ROOM: WP011 RE01/19/[address]: Dr. Yunior Alejo MD : 1975 BED: 1 DIS: 01/22/2018 SPEC #: [id number] RECD: 01/20/18 00:27 STATUS: JACOB HOPE #: [id number] JAMES: 01/19/18 19:[address]: Chloé Patterson DEPT: SURGICAL PATHOLOGY RECD BY: Keisha Espinoza ENTERED: 01/22/18 09:33 SP TYPE: PLACENTA OTHR DR: Dr. Yunior Alejo MD No Primary Care Phys Tissues: Placenta, NOS Procedures: Surgery Specimen Level V HEADER OPERATION: section PRE-OP DIAGNOSIS: , nonreassuring FHR TISSUE SUBMITTED: Placenta MICROSCOPIC DIAGNOSIS Placenta: Placental disc - third trimester placenta (569 gm). Membranes - no pathologic diagnosis. Umbilical cord - three blood vessels and no pathologic diagnosis. AARON:rian 01/24/18 MICROSCOPIC DESCRIPTION Slides are reviewed. GROSS DESCRIPTION SPECIMEN: PLACENTA / CLINICAL INFORMATION: A. Weight: 3.19 kg B. Gestational Age: 37 weeks C. Sex: Female PLACENTAL WEIGHT (POST FIXATION): 569 gm PLACENTAL DIMENSIONS: 18 x 15 x 4.5 cm. This appears to be partly disrupted, however, the maternal surface appears to be complete. PLACENTAL SHAPE: Usual ovoid PLACENTAL WEIGHT FOR GESTATIONAL AGE: Within 10-99th percentile MEMBRANES - Present A. Insertion: Marginal B. Site of rupture from edge: The membranes are fragmented and distance of the rupture cannot be assessed. C. Color of membrane: Mcneil-bucio D. Abnormalities: None UMBILICAL CORD - Present A. Color: Mcneil-bucio B. Insertion: Paracentral C. Length: 47 cm D. Diameter: 1-1.7 cm E. Number of vessels: Three F. Abnormalities: None PLACENTAL DISC - Present A. Color of surface: Mcneil-bucio B. surface abnormalities: None C. Maternal cotyledons: Intact with minimal tears D. Attached retro placental clot: No clot E. Cut surface: Dark red and spongy F. Lesions: None G. Separate clot: Absent SECTIONS SUBMITTED: 1. Membrane roll 2. Cord, maternal end 3. Cord, end 4. Placental disc, and maternal surfaces 5. Placental disc, and maternal surfaces 6. Placental disc, and maternal surfaces SJ:rian 01/23/18 TC:5 CPT: 15623
[2018-01-19] MEDS: Methylergonovine 0.2 MG/ML Ampul IM (19:38)
[2018-01-19] MEDS: NIFEdipine 60 MG Tablet PO (21:23)
[2018-01-19] MEDS: Lactated Ringers 1,000 ML 100 ML IV (21:45)
[2018-01-19] MEDS: Nalbuphine 10 MG/ML Ampul 5 MG IV (21:52)
[2018-01-20] VITALS (13 sets, daily range): BP systolic 122–161; BP diastolic 56–83; PULSE 71–85; RESP 16–18; TEMP 36.3–36.9; O2SAT 97–100
[2018-01-20] MEDS: Ketorolac 30 MG/ML Syringe IV ×4 (00:38→18:03)
--- NOTE | 2018-01-20 04:00 | NURSING ---
Nurse in room helping patient breastfeed. Patient expresses frustration with baby not feeding well and states All of my other kids fed well, it's her fault that this isn't going well. Patient also stated multiple times that she was not pleased with the gender of the baby. Patient also states she is depressed about her weight and is not happy with her older children. [facility]. Patient very anxious, tearful, and upset at this time. States Nothing about this or this child has been what I wanted.
[2018-01-20] MEDS: Nalbuphine 10 MG/ML Ampul 5 MG IV ×2 (04:09→15:44)
[2018-01-20 04:55] LABS: Hematocrit 34.3 % (37-47); Hemoglobin 11.3 g/dl (12.0-15.0); Mean Corp Hgb Conc 32.9 g/gl (32-36); Mean Platelet Vol. 10.1 fl (6.2-12.0); Platelet Count 230 K/mm3 (150-450); RBC Distribution Width SD 42.2 fl (35.1-43.9); Red Blood Count 4.34 M/mm3 (4.2-5.4)
[2018-01-20 04:57] LABS: Scan Indicated on CBC? Y/N NO
--- NOTE | 2018-01-20 05:08 | PCM.DCCSEC ---
Discharge Diet: No Restrictions Discharge Activity: May not drive while taking narcotic pain medications., May Shower, May Take a Tub Bath May resume sexual activity in: 4-6 weeks Lifting Restrictions: 20 pounds Additional Activity Instructions:: Nothing in the vagina for 4-6 weeks. You may return to work/school in 6 weeks. Change Dressing in (Days):: 4 Remove Dressing in (days):: 4 Cleanse incision/area with: Soap & Water, Keep Dressing Clean & Dry Additional Instructions: If you experience any of the following, contact your healthcare provider. Bleeding that soaks a pad every hour for 2 hours Fever 100.4 or higher Unrelieved incision or abdominal pain Swelling, redness, discharge or bleeding from your incision or episiotomy site Your incision begins to separate Problems urinating (including inability to urinate or burning while urinating). Visual changes Severe headache Flu-like symptoms Pain or redness in one of both of your breasts Pain, warmth, tenderness or swelling in your legs, especially the calf area Frequent nausea and vomiting Symptoms of depression or anxiety If you experience any of the following, call 911 or go to the nearest Emergency Room. Chest pain Problems breathing Seizure activity Partial or complete paralysis of a body part, slurred speech, weakness or drooping of the face, or a sudden inability to walk or hold your balance Allergies/Adverse Reactions: Allergies cefazolin sodium [From Ancef] Allergy (Verified 01/12/18 15:41) Hives Medications to take at Discharge Nifedipine [Nifedipine ER] 60 mg PO DAILY 09/14/17 Acetaminophen [Tylenol] 1,000 mg PO Q8H PRN tablet 01/20/18 Naproxen [Naprosyn] 250 - 500 mg PO Q8H PRN PRN #30 tab 01/20/18 Oxycodone [Oxyir] 5 - 10 mg PO Q4H PRN PRN 7 Days #20 tablet 01/20/18 Senna/Docusate Sodium [Senokot-S] 1 - 2 tab PO DAILY PRN #30 tab 01/20/18 The following prescriptions were given: Oxycodone [Oxyir] 5 - 10 mg PO Q4H PRN PRN 7 Days #20 tablet PRN Reason: Mod-Severe Pain () Naproxen [Naprosyn] 250 - 500 mg PO Q8H PRN PRN #30 tab PRN Reason: Mild Pain (-08/19) Senna/Docusate Sodium [Senokot-S] 1 - 2 tab PO DAILY PRN #30 tab PRN Reason: Constipation Follow-Up: Call to make an appointment with your doctor for an incision check in 1-2 weeks. You will also need a 6 week post- follow up appointment. Test results from this visit will be discussed in further detail at your follow-up appointment, if applicable. Please Follow Up With: Yunior Alejo MD - [phone] When: Call to make an appointment for an incision check in 2 weeks. Primary Care Physician: Care Physician,No Primary [Primary Care Provider] -
--- NOTE | 2018-01-20 05:12 | DCINST_ITS ---
Discharge Diet: No Restrictions Discharge Activity: May not drive while taking narcotic pain medications., May Shower, May Take a Tub Bath May resume sexual activity in: 4-6 weeks Lifting Restrictions: 20 pounds Additional Activity Instructions:: Nothing in the vagina for 4-6 weeks. You may return to work/school in 6 weeks. Change Dressing in (Days):: 4 Remove Dressing in (days):: 4 Cleanse incision/area with: Soap & Water, Keep Dressing Clean & Dry Additional Instructions: If you experience any of the following, contact your healthcare provider. * Bleeding that soaks a pad every hour for 2 hours * Fever 100.4 or higher * Unrelieved incision or abdominal pain * Swelling, redness, discharge or bleeding from your incision or episiotomy site * Your incision begins to separate * Problems urinating (including inability to urinate or burning while urinating) . * Visual changes * Severe headache * Flu-like symptoms * Pain or redness in one of both of your breasts * Pain, warmth, tenderness or swelling in your legs, especially the calf area * Frequent nausea and vomiting * Symptoms of depression or anxiety If you experience any of the following, call 911 or go to the nearest Emergency Room. * Chest pain * Problems breathing * Seizure activity * Partial or complete paralysis of a body part, slurred speech, weakness or drooping of the face, or a sudden inability to walk or hold your balance Allergies/Adverse Reactions: Allergies cefazolin sodium [From Anc] Allergy (Verified 01/12/18 15:41) Hives Medications to take at Discharge Nifedipine [Nifedipine ER] 60 mg PO DAILY 09/14/17 Acetaminophen [Tylenol] 1,000 mg PO Q8H PRN tablet 01/20/18 Naproxen [Naprosyn] 250 - 500 mg PO Q8H PRN PRN #30 tab 01/20/18 Oxycodone [Oxyir] 5 - 10 mg PO Q4H PRN PRN 7 Days #20 tablet 01/20/18 Senna/Docusate Sodium [Senokot-S] 1 - 2 tab PO DAILY PRN #30 tab 01/20/18 The following prescriptions were given: Oxycodone [Oxyir] 5 - 10 mg PO Q4H PRN PRN 7 Days #20 tablet PRN Reason: Mod-Severe Pain (-03/21) Naproxen [Naprosyn] 250 - 500 mg PO Q8H PRN PRN #30 tab PRN Reason: Mild Pain (-08/19) Senna/Docusate Sodium [Senokot-S] 1 - 2 tab PO DAILY PRN #30 tab PRN Reason: Constipation Follow-Up: Call to make an appointment with your doctor for an incision check in 1-2 weeks. You will also need a 6 week post- follow up appointment. Test results from this visit will be discussed in further detail at your follow- up appointment, if applicable. Please Follow Up With: Yunior Alejo MD - [phone] When: Call to make an appointment for an incision check in 2 weeks. Primary Care Physician: Care Physician,No Primary [Primary Care Provider] -
[2018-01-20] MEDS: Lactated Ringers 1,000 ML 100 ML IV (07:41)
--- NOTE | 2018-01-20 07:54 | PCM.PN.OB ---
Subjective: POD#1 PIH induction, to stat C section for nonreassuring FHT BTO also performed per pt request. Tearful and mercer. States a lot going on. Offered antidepressant but declines as states nothing works by PCP, psychiatrist or our office. She has tried: [place], Seroquel, Zoloft, celexa? Stuffy nose per RN and will rx med for that. Objective: Conn draining ying appearing , clear urine. QS. - Physical Exam General: Alert, Oriented x3, Cooperative, No apparent distress HEENT: Atraumatic, EOMI Neck: Supple Abdomen: Soft - Fundus firm and tender consistent with postop status. Skin: Incision - Mepilex dressing CDI. (silver imed drsg) Neurological: Cranial nerves II-XII grossly intact Psych/Mental Status: Normal Affect Vital Signs Temp Pulse Resp BP Pulse Ox 97.3 F L 78 16 161/83 H 97 01/20/18 03:35 01/20/18 06:40 01/20/18 06:40 01/20/18 03:35 01/20/18 06:40 Oxygen Delivery Method Room Air Weight: 100.698 kg Body Mass Index (BMI) 36.9 Finger Stick Blood Glucose 121 Intake and Output for Last 24 Hours 01/18/18 01/19/18 01/20/18 23:59 23:59 23:59 Intake Total 100 / 100 1585 / 1585 Output Total 1200 / 1200 1700 / 1700 Balance -1100 / -1100 -115 / -115 Laboratory Tests Past 24 Hrs 01/19/18 01/19/18 01/19/18 07:45 07:45 09:15 WBC 13.3 H RBC 4.74 Hgb 12.1 Hct 37.8 MCV 79.7 L MCH 25.5 L MCHC 32.0 RDW 14.8 H RDW Differential 43.3 Plt Count 229 MPV 10.3 PT 12.6 INR 0.9 APTT 30.3 Creatinine Estim Creat Clear Calc Est GFR (MDRD) Af Amer Est GFR (MDRD) Non-Af Uric Acid AST ALT U Random Total Protein Urine Creatinine Protein/Creatinin Ratio Blood Type O NEGATIVE Antibody Screen NEGATIVE 01/19/18 01/19/18 01/20/18 09:15 09:15 04:40 WBC 17.0 H RBC 4.34 Hgb 11.3 L Hct 34.3 L MCV 79.0 L MCH 26.0 L MCHC 32.9 RDW 15.0 H RDW Differential 42.2 Plt Count 230 MPV 10.1 PT INR APTT Creatinine 0.34 L Estim Creat Clear Calc 193.96 Est GFR (MDRD) Af Amer 272 Est GFR (MDRD) Non-Af 225 Uric Acid 3.6 AST 11 L ALT 23 U Random Total Protein 12.2 H Urine Creatinine 62.80 Protein/Creatinin Ratio 194 Blood Type Antibody Screen POC Glucose 01/19/18 01/19/18 01/19/18 13:03 11:26 10:33 POC Glucose 70 100 201 H Medical Necessity - Tobacco Use Smoking Status: Current every day smoker Assessment/Plan All Active Problems (Last Updated 11/04/17 @ 12:14 by Obdulia Suazo MD) Chronic hypertension (Acute) POD#1 Induction for PIH, to stat C/S for nonreassuring FHT. BTO. #1 Postop C/S. Stable postop. Inc diet and activity as tolerated. D/C conn for voiding trial later today. S/L IV for continued Toradol #2 PIH. B/Ps better controlled since delivery. Continue po antihypertensive and f/u in ofc in 2 wk for postop check, BP check #3 GDM blood sugars all OK but one at 200 in labor. no additional medication needed. #4 Bipolar disorder, depression. declines all medication for this. Social service consult planned prior to dischg. #5 Nasal congestion. Afrin prn. Continue care.
--- NOTE | 2018-01-20 08:09 | NURSING ---
discussed with the patients statements of depression, I was in the room when when the brought it up to the patient she could order medication for depression the patient has refused.
[2018-01-20] MEDS: NIFEdipine 60 MG Tablet PO (10:02)
[2018-01-20] MEDS: Aspirin 81 MG TAB.CHEW PO (10:02)
[2018-01-20] MEDS: Oxymetazoline 0.05% 1 SPRAY SPRAY.BTL 2 SPRAY NASAL (10:02)
--- NOTE | 2018-01-20 10:42 | CASEMGMT ---
SOCIAL WORK: Social work consult received this date from physician due to maternal mental health history: homeless, living at [facility] with children. H/O bipolar, no meds and currently declines. Multiple social issues related to this. Chart reviewed and collaboration with Dr. Patterson and RN taking care of mom of baby. Mom of baby is a 42 year old single female with past medical history of hypertension, daily tobacco abuse, bipolar disorder, borderline personality disorder and gestational diabetes. Medications during included vitamins, aspirin and nifedipine. care reportedly received from Dr. Alejo. Baby's chief deputy will reportedly be Dr. Marroquin. Mom reportedly receives SSDI and Medicare Part A and B along with Medicaid. She is reportedly signed up for WIC. She has conveyed to staff that she is estranged from her oldest son and her parents. A friend, Carla, was reportedly here during baby's delivery. Per review of nursing documentation, mom expressed frustration with baby not feeding well during , stating that All my other kids fed well and it's her fault that this isn't going well. Mom also stated multiple times in front of nurse that she is not pleased with gender of baby; that she is depressed about her weight and is not happy with her older children. Mom also commented that nothing about this or this child has been what I wanted. She has appeared anxious, tearful and upset. This SW attempted to meet with mom in the [facility] Nurs[facility]; baby required transfer due to bedside glucose of 25. Mom holding in rocking chair. SW introduced self and role at [facility] and conveyed that intent of visit was supportive and helpful in nature. Mom rolled her eyes and stated that she does not need this right now and that she does not need any help. She refused to make eye contact with this SW and either looked away or kept her eyes closed. She appeared irritable and at times tearful. She was guarded with sharing information and refused to answer the majority of this SW's questions. Mom also not receptive to educational information about post- depression, shaken baby syndrome or safe sleep for baby. Mom has 5 children ages 23; 19; 15; 12 and 9. They all have different fathers except for the 12 and 9 year old who share the same father. She reports that the new baby, Johanna, has a different father and that she was not planned or wanted. She states I am 42 years old and I thought I was done having children. SW commented how beautiful her baby girl is and mom did not respond. Mom states that none of the baby daddies are involved and she prefers it this way. She adamantly informs this SW that she is a good mom and that she does not need help from anyone, stating that she has everything that she needs for the baby and that she has everything under control. She would not share where her children are currently staying. Mom reports that she and her children have been staying at the [facility] for 2 weeks because of being evicted for no reason from an apartment in [place] and that she has everything all set up with [employer] to move into [facility]. Mom reportedly has a vehicle, 2 car seats and a bassinet. She became very angry when this SW asked if she needed help with diapers, clothing, or other miscellaneous items and yelled that she did not want to speak with me. SW broached topic of Help Me Grow referral and this made mom angry as well; she adamantly refused to consider this resource stating that she is not interested and again stating that she does not need any help with her baby. SW attempted to normalize stress that mom is feeling related to living situation and new baby to care for and gently broached topic of antidepressant medication which physician recommended earlier today. Mom began yelling at this and stated that she has been taking antidepressants since age 23 and that they do not work and that she will not take them again, no-matter what. SW thanked mom for her time and advised her of primary availability for Monday in the event that she happens to change her mind about wanting information or help. Collaboration with physician and RN to advise of recommendation for CPS referral along with [facility]. PLAN: Attempted to initiate CPS referral to [facility] this afternoon; recording indicated to call during business hours unless an emergency. Vic Peterson to call on Monday, as will still be here in [facility]. Lucy KAUR,[facility]
--- NOTE | 2018-01-20 13:43 | CPS ---
patient refused this am, left in room for nursing to start.
--- NOTE | 2018-01-20 13:45 | CPS ---
teaching to be done by nursing
[2018-01-20] MEDS: 0.9% Saline Lock 10 ML Syringe IV (18:03)
[2018-01-20] MEDS: oxyCODONE 5 MG Tablet PO ×2 (20:59→21:58)
[2018-01-20] MEDS: Senna/Docusate Sodium 1 Tablet PO (20:59)
[2018-01-21] MEDS: Ketorolac 30 MG/ML Syringe IV ×3 (00:38→11:52)
[2018-01-21] MEDS: 0.9% Saline Lock 10 ML Syringe IV ×3 (00:39→11:52)
[2018-01-21 03:05] VITALS: BP 141/80; PULSE 77; RESP 18; TEMP 36.5
[2018-01-21] MEDS: oxyCODONE 5 MG Tablet PO ×5 (03:17→20:09)
[2018-01-21] MEDS: Aspirin 81 MG TAB.CHEW PO (08:04)
[2018-01-21 08:05] VITALS: BP 119/67; PULSE 77; RESP 20; TEMP 36.7; O2SAT 96
--- NOTE | 2018-01-21 08:39 | PCM.PN.OB ---
Subjective: POD#2 Repeat C/S and BTO No concerns voiced. Wants to sleep in. minimal responses to exam - Physical Exam General: No apparent distress HEENT: Atraumatic Neck: Supple Abdomen: Soft - Fundus inferior to umbilicus. Tender consistent with postop, with voluntary guarding. Skin: Incision - Continued voluntary guarding. Mepilex CDI. no shadow drainage. No erythema or skin irritation around dressing. Neurological: Cranial nerves II-XII grossly intact Vital Signs Temp Pulse Resp BP Pulse Ox 98.1 F 77 20 H 119/67 96 18 08:05 01/21/18 08:05 01/21/18 08:05 01/21/18 08:05 01/21/18 08:05 Oxygen Delivery Method Room Air Weight: 100.698 kg Body Mass Index (BMI) 36.9 Finger Stick Blood Glucose 121 Intake and Output for Last 24 Hours 18 01/20/18 01/21/18 23:59 23:59 23:59 Intake Total 100 / 100 1585 / 1585 Output Total 1200 / 1200 1999 / 1999 Balance -1100 / -1100 -415 / -415 Laboratory Tests Past 24 Hrs 01/20/18 13:10 Screen NEGATIVE Baby's Blood Type PRESUMED RH POS Baby's ANA PAULA TNP Medical Necessity - Tobacco Use Smoking Status: Current every day smoker Assessment/Plan All Active Problems (Last Updated 11/04/17 @ 12:14 by Obdulia Suazo MD) Chronic hypertension (Acute) POD#2 Induction for PIH, to stat C/S for nonreassuring FHT. BTO. #1 Postop C/S. Stable postop. Begin po meds. #2 PIH. B/Ps better controlled since delivery. Continue po antihypertensive and f/u in ofc in 2 wk for postop check, BP check #3 GDM blood sugars all OK #4 Bipolar disorder, depression. declines all medication for this. Social service consult planned prior to dischg. #5 Nasal congestion. Afrin prn. Continue care. administrative services manager consult needed.
[2018-01-21] MEDS: Senna/Docusate Sodium 1 Tablet PO (10:16)
[2018-01-21] MEDS: NIFEdipine 60 MG Tablet PO (10:16)
[2018-01-21 13:50] VITALS: BP 143/73; PULSE 86; TEMP 36.8; O2SAT 95
[2018-01-21] MEDS: Acetaminophen 500 MG Tablet 1000 MG PO (17:38)
[2018-01-21] MEDS: Naproxen 250 MG Tablet PO (18:53)
[2018-01-21 19:50] VITALS: BP 170/88; PULSE 92; RESP 16; TEMP 37.1; O2SAT 98
[2018-01-21 20:00] VITALS: BP 148/77
[2018-01-21] MEDS: Oxymetazoline 0.05% 1 SPRAY SPRAY.BTL 2 SPRAY NASAL (20:24)
[2018-01-22 03:00] VITALS: BP 148/78; PULSE 76; RESP 16; TEMP 36.7
[2018-01-22] MEDS: oxyCODONE 5 MG Tablet PO (03:05)
[2018-01-22] MEDS: Naproxen 250 MG Tablet PO (04:54)
--- NOTE | 2018-01-22 07:44 | PCM.PN.OB ---
Subjective: POD#3 Repeat C/S Induction @ 37 wk 2/2 PIH. . Stat C/S for bradycardia Baby is in SCN. Pt pumping milk. Wants to go home today. States she has to sign lease on apt to get her kids moved in. States she has talked with social workers a lot and really doesn't want to talk to another. (advised she should do this today prior to dischg). Objective: Sleeping, but wakes to voice today. To state as above. Also now with CC of L ear pain and believes she has an ear infection. Wants it checked. - Physical Exam General: Alert, Oriented x3, Cooperative, No apparent distress HEENT: Atraumatic Neck: Supple Abdomen: Soft - tender to palpation of umbilical region, voluntary guarding. Fundus firm and below umbilicus, minimally tender c/w postop status. Skin: Incision - Dressing dry and intact. Mepilex Neurological: Cranial nerves II-XII grossly intact Psych/Mental Status: Agitated - (bipolar), - Vital Signs Temp Pulse Resp BP Pulse Ox 98.1 F 76 16 148/78 H 98 01/22/18 03:00 01/22/18 03:00 01/22/18 03:00 01/22/18 03:00 01/21/18 19:50 Oxygen Delivery Method Room Air Weight: 100.698 kg Body Mass Index (BMI) 36.9 Finger Stick Blood Glucose 121 Intake and Output for Last 24 Hours 01/20/18 01/21/18 01/22/18 23:59 23:59 23:59 Intake Total 1585 / 1585 Output Total 1999 Balance -415 / -415 Medical Necessity - Tobacco Use Smoking Status: Current every day smoker Assessment/Plan All Active Problems (Last Updated 11/04/17 @ 12:14 by Obdulia Suazo MD) Chronic hypertension (Acute) POD#2 Induction for PIH, to stat C/S for nonreassuring FHT. BTO. #1 Postop C/S. Stable postop. #2 PIH. B/Ps labile, but better controlled since delivery. Continue po antihypertensive and f/u in ofc in 2 wk for postop check, BP check #3 GDM blood sugars all OK #4 Bipolar disorder, depression. declines all medication for this. Social service consult planned prior to dischg. Advised of this. Not very receptive but advised necessary Plans dischg today. States has to sign lease on an appt [place] after dischg home. #5 Nasal congestion. Afrin prn. #6 Ear Pain. Advised will need to find otoscope to be able to evaluate this. Not equipment kept on floor. Certain she has an ear infection. Continue care. supervisor special services consult needed prior to dischg. Dischg home planned today.
--- NOTE | 2018-01-22 08:10 | PCM.DC.SUM ---
Discharge Date and Diagnosis Date of Admission: 01/19/18 - PIH 37 wk induction prior C/S for Date of Discharge: 01/22/18 - Stat C/S for bradycardia, deceleration. BTO Hospital Course and Treatment Summary of Care Provided: The patient is a 42 year old [id number] female admitted on 01/19/18 for induction of labor at 37 wks EGA 2/2 PIH. unfavorable cervix., prior C/S. Admitted for induction: Pitocin, Avelar bulb induction. AROM. IUPC Placed at 3 cm and scalp lead. Unable to inc pitocin d/t FHR tracing. Ultimately deep decelerations noted. Taken for stat C section. Requesting BTO also. Repeat C/S and BTO performed on 01/19/18 Turcios viable female in vertex presentation. Apgars 9/9, Baby weight: 7# 0.5 oz. There were normal appearing uterus, fallopian tubes and ovaries bilaterally. Filshie clip BTO performed Postoperative course uneventful. Bipolar and with mood swings in hospital. Refused medication stating it's never worked in the past. guest services coordinator consult, but minimally responsive to relay worker. Informed MD that she had talked to too many social workers. Wants to leave [place] to sign lease on appt for herself and other children who have reportedly been living at [facility] [employer] at night and in car during day. Preoperative Hgb 12.1 g/d and postoperative Hgb 11.3 g/dl. AVSS Benign exam. Will dischg home per pt request on POD#3, pending patient financial services coordinator evaluation. RTO in 2 wk for BP check and incision check. Discharge Diet: No Restrictions Discharge Activity: May not drive while taking narcotic pain medications., May Shower, May Take a Tub Bath May resume sexual activity in: 4-6 weeks Additional Activity Instructions:: Nothing in the vagina for 4-6 weeks. You may return to work/school in 6 weeks. Change Dressing in (Days):: 4 Remove Dressing in (days):: 4 Cleanse incision/area with: Soap & Water, Keep Dressing Clean & Dry Home Medications: Medications to take at Discharge Nifedipine [Nifedipine ER] 60 mg PO DAILY 09/14/17 Acetaminophen [Tylenol] 1,000 mg PO Q8H PRN tablet 08/11/18 Naproxen [Naprosyn] 250 - 500 mg PO Q8H PRN PRN #30 tab 01/20/18 Oxycodone [Oxyir] 5 - 10 mg PO Q4H PRN PRN 7 Days #20 tablet 01/20/18 Senna/Docusate Sodium [Senokot-S] 1 - 2 tab PO DAILY PRN #30 tab 01/20/18 Following Prescrptions Were Given to Patient: Oxycodone [Oxyir] 5 - 10 mg PO Q4H PRN PRN 7 Days #20 tablet PRN Reason: Mod-Severe Pain (-03/21) Naproxen [Naprosyn] 250 - 500 mg PO Q8H PRN PRN #30 tab PRN Reason: Mild Pain (-08/19) Senna/Docusate Sodium [Senokot-S] 1 - 2 tab PO DAILY PRN #30 tab PRN Reason: Constipation Primary Care Physician: Care Physician,No Primary [Primary Care Provider] - Please Follow Up With: Yunior Alejo MD - [phone] When: Call to make an appointment for an incision check in 2 weeks. Medical Necessity - Tobacco Use Smoking Status: Current every day smoker Meaningful Use Info Meaningful Use Diagnoses (Choose all that apply): None applicable
[2018-01-22] MEDS: Aspirin 81 MG TAB.CHEW PO (08:30)
[2018-01-22 09:50] VITALS: BP 143/77; PULSE 77; RESP 18; TEMP 36.6; O2SAT 98
[2018-01-22] MEDS: NIFEdipine 60 MG Tablet PO (09:52)
--- NOTE | 2018-01-22 10:09 | NURSING ---
Pt tearful and expressing frustration to RN, stating she is tired of being treated like a 2 year old. It's not my first baby. I know what to do. Declines teaching related to discharge so made aware that she has her [facility] booklet in her white folder containing symptoms to look for after discharge. Also made aware that her discharge papers will also contain this information and that she has prescriptions at [facility]. Verbalized understanding.
--- NOTE | 2018-01-22 12:00 | CASEMGMT ---
Social Work Note Labor and Delivery Unit Follow up visit to patient/mother of baby (MOB). Social work tried to see MOB on 01-20-18 and MOB did not want to answer all qustions. Today, MOB completed the PHQ9 depression scale with a score of 3, indicating feeling down, tired, and bad about herself for several days. Score is a 3. Baby remains in the [facility] where this web content writer also provides social work and needs to complete a psychosocial history for. Upon introduction of self to MOB, this web content writer acknowledged up front the reports this web content writer received that MOB does not like talking to social workers and that does not really want to talk to this web content writer. Educated MOB to need for consult and that this web content writer here today to complete initial assessment for SCN, as well as follow up from some things related to MOB's admission at [facility]. MOB agreed to speak with this web content writer, and was fine with talking about all subjects in front of 4 older kids in the room (ages 19-9). MOB reports to be open with kids and comfortable talking about anything. History obtained from: Medical record and MOB Household composition: MOB reports to currently live at [facility] in [place], along with MOB's other minor children. MOB reports will be signing a lease today for a new apartment located at [address] [place] [address] in [place]. Patient's parent/guardian status: MOB and reported father of baby (FOB) Anshul Yi are not involved. Conception of Baby girl Johanna was a result of a one night stand. DIONICIO has 6 living children now. All children except Hieu and Matheus have different fathers, so 5 fathers in total. MOB's children include: ?Behzad, age 22 almost 23 and currently living with maternal grandparents. MOB reports to be estranged from Behzad for about a year now. ?Kaylan, age 19, currently living with a boyfriend, but MOB reports Kaylan is working on her own living situation. ?Óscar, age 15, living with MOB ?Hieu Rodriguez, age 12, living with MOB ?Matheus Rodriguez, age 9, living with MOB ? baby, Johanna Rodriguez, born on 01-19-2018. Medical History: MOB is G10, P5 to 6 after delivering Johanna. MOB reports history several first trimester miscarriages and one 6 month gestational loss 01-26-2008, twin girls named Nya and Juani. MOB with care for Johanna starting at 8 weeks gestation. Johanna was born with birthweight of 7 pounds 1 ounce. Apgars 9 and 9. Educational Status: DIONICIO graduated from [employer] school is able to read and write; able to understand what is read. Health Care Coverage: Medicare and Medicaid. Financial Status: MOB reports is on disability related to mental illness. 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 Infant Supplies: MOB reports to have car seat, bassinet, and getting a pack-n-play. MOB reports to have diapers, wipes, and clothing as well. MOB reports intent to breastfeed baby as fed all other children this method, with last child feeding for 22 months. Childcare/Caregiver(s): MOB will be primary caregiver and when returns to work plans to have older children, likely Kaylan help with childcare. Transportation: MOB reports to have adequate transportation. Programs/Agencies Involved: MOB to have food and medical from [facility], [facility], [facility] for longterm, and [facility] housing program/financial help with getting started. Plans to use Dr. Marroquin for post hospital medical needs for baby. Needs/Wants: WIC and Early Head Start through [facility]. Legal and Children Services History: MOB reports to have a traffic (driving) violation but denies other legal issues or probation. MOB reports history of children services involvement about 10 years ago when the children were removed from MOB's custody and into foster care for 2 months. MOB reports at the time MOB has CDiff infection and the house became a mess. MOB reports the allegations of child neglect. Behavioral Health Issues: MOB reports history of Bipolar and depression. Record indicates DIONICIO also carries a diagnosis of Borderline Personality Disorder. MOB reports as a teenager did have some suicidal thoughts, but nothing in adulthood. MOB reports history of depression after Kaylan as born. MOB reports long history of trying various psychiatric medications including Depakote, lithium, Seroquel, Zoloft, and Paxil. MOB reports medicine does not work for MOB, and that MOB has done research. 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 MOB reports history of counseling, does not see this as helpful either, and not interested in referral at this time. MOB reports to just manage on own, that does like to read and does smoke cigarettes when feeling stressed. No reports or identification of any substance use for DIONICIO. DIONICIO does smoke tobacco, about a pack a day. DIONICIO had negative drug screens on 01-01-17 and 07-03-17. Family/Social Stressors: DIONICIO was evicted from home in November forcing DIONICIO to move children into the local homeless longterm, and then due to constraints of the longterm forced DIONICIO to stay in the car with the kids during the day. No reason provided as to reason for eviction. DIONICIO reports no support from any of the father's of her children, including current FOB, but that MOB likes it that way. MOB with untreated mental illness and per reports from staff has exhibited labile mood since hospitalization. was unplanned, and it is reported that DIONICIO was making comments earlier on that was upset to be having another girl, and report from social services assistant who saw DIONICIO on 01-20-18, the MOB made comment that it is baby's fault that baby is not eating well. MOB tells this web content writer that the moss with Johanna is getting better and coming. care record indicates DIONICIO was expressing much stress this from multiple kids, teenagers, and living situation. MOB currently voicing stress from baby's feeding issues and concern that may not be able to breast feed her last child. DIONICIO touched on stress from having an estranged relationship with her oldest and general worry about her kids well beings. Support Systems: MOB reports a friend named Carla is my person and is actually the ex girlfriend of DIONICIO's son Behzad. MOB reports Carla is 22 and is an emotional support to MOB, as well as has been helping MOB out with the younger kids as needed. MOB reports that the older kids do help out with the younger kids. MOB is has been working with community agencies to assist with securing affordable housing. Assessment MOB reports that feelings for baby are coming an getting better, and identifies desire to breast feed baby. MOB discussed feeling out of control of the situation, feeling as though others are not acknowledging DIONICIO's experience as a 6 times mother, and that in general this entire did not go as MOB planned or expected. MOB reports has been working hard to get a place to live, and that will feel better when can sign the new lease today, so that the kids don't have to spend another night in a homeless longterm. MOB reports the older kids, specifically the 19 year old, has been watching the younger kids while MOB is in the hospital. MOB reports to have all needed supplies for baby to get started. Discussed with MOB her current mood and stress level. MOB reports that does not like for people to tell MOB that MOB is stressed out. MOB reports that all of the stress MOB is currently enduring are things that MOB has dealt with in the past and gotten through. MOB reports stress is something that MOB has come to expect. MOB also reports perception that mood is no worse than what is usual for MOB. Addressed with MOB the PHQ9 questions. MOB denies any thoughts of suicide or thoughts of harm to others. MOB refuses to have any actual mental health referral at this time. MOB did agree to have social services assistant come back to provide some resource information, though remains resistant to any type of mental health referral. MOB agrees to Early Head Start referral if can get Abbey [place]. Talked with MOB that there is a chance that children services may be coming out and following up with MOB related to risk factors present. MOB calmly and politely told this web content writer that will not let children services in if they show up at MOB's door. Observed MOB and children to talk openly with each other, loose boundaries noted in this family system as evidenced by cussing going on by some of the children, kids interrupting, and MOB having side conversations with the kids while talking to this web content writer. Kids would also interject at times their own opinions about subjects this web content writer was asking MOB. MOB cried intermittently throughout social work visit, was able to keep focus on topics that MOB was talking to this web content writer however, even when interrupted by kids. MOB mood appearing anxious. Eye contact normal. MOB polite in how spoke to this social services assistant, and was cooperative. MOB reports that appreciates not being yelled at by this web content writer. MOB does seem to, and did even express, that has a hard time feeling out of control right now ( from older kids, trying to secure housing, and being here for the baby). Plan MOB is being discharged today. Will go to a courtesy room on the labor and delivery unit as baby remains in the SCN. Further social work interventions/assessment will be done with family on the SCN. Response to Plan: MOB does express understanding of proposed plan for social work to return and provide resources sometime before the baby leaves from the SCN. VINCENT Rubin
--- NOTE | 2018-01-24 16:00 | CASEMGMT ---
Social Work Labor and Delivery Unit Patient/mother of baby was discharged previously and social work following MOB and baby concurrently on the [facility] unit and [facility]. As a follow up to MOB's social work assessment, the referrals completed for this family are documented below: Interventions: Provision of community resources packets, including mental health supports available; postparutm depression packet given. Early Head Start referral form completed, faxed to confirmed fax at [phone]. Demographic data for this family: [address], [place]; [phone], (daughter's cell phone). Called [facility] ([facility]) today. Spoke with Anastasiya Choudhury ([phone], extension [phone]) for referral. Brief maternal and infant histories provided. Concern related to multiple risk factors for this family including maternal mental health and refusal to engage in mental health treatment/support at this time, recent housing instability, and even MOB's actions/reactions noted by staff about how MOB was feeling about this baby initially and observed labile reactions of MOB initially during hospital stay. Per call with [facility], anticipating case will be opened for investigation. No other services requested or indicated. -VINCENT Yeung, PLATING FOREMAN
[2018-01-28 00:53] LABS: Pathology Specimen OB SEE PATHOLOGY REPORT
== END 2018-01-22 12:35 | disposition home or self-care (01) | DRG 766 ==
PROVIDERS: Admitting Provider Obstetrics & Gynecology; Visit Provider Obstetrics & Gynecology
DX: O13.4 Gestational [pregnancy-induced] hypertension without significant proteinuria, complicating childbirth (principal); Z30.2 Encounter for sterilization; O24.420 Gestational diabetes mellitus in childbirth, diet controlled; O76 Abnormality in fetal heart rate and rhythm complicating labor and delivery; O99.214 Obesity complicating childbirth; E66.01 Morbid (severe) obesity due to excess calories; Z68.36 Body mass index [BMI] 36.0-36.9, adult; O99.344 Other mental disorders complicating childbirth; F31.9 Bipolar disorder, unspecified; O99.334 Smoking (tobacco) complicating childbirth; Z3A.39 39 weeks gestation of pregnancy; Z37.0 Single live birth
CPT/HCPCS: 59025; 59050; 82565; 82570; 82962; 84156; 84450; 84460; 84550; 85027; 85461; 85610; 85730; 86850; 86900; 88307; 90384; 99218; J7120; A4216; G0378; J2405; J2790

== ENCOUNTER 2018-10-01 14:58 | Observation (INO) | payer MEDICARE, SELFPAY ==
--- NOTE | 2018-09-27 16:37 | PCM.HP.BLA ---
History and Physical Date of Admission: 10/01/18 HISTORY AND PHYSICAL ? Regi Rodriguez 1975 ? ? REFERRING PHYSICIAN: ??Self ? CHIEF COMPLAINT: ??Consult ? HPI: Regi is a 43 year old female with a complaint of a bulge ?in her?prior Pfannenstiel incision specifically to the left of midline. ???The patient notes discomfort in this area with lifting, coughing and moving. ?The symptoms have increased, over the past few months. ? The patient notes no symptoms of bowel obstruction and denies nausea or vomiting. The patient was seen by?her?primary care physician ?who felt the patient has a hernia. ?Regi was referred for evaluation and treatment. ? The patient notes 2 previous C-sections the most recent one being 8 months previously. ? ? She also notes that one of her right upper lateral face piercings is infected with chronic granulation tissue and pain ? The patient is being seen by me today at the request of Dr. Shadi Marroquin MD for my opinion and advice regarding an incisional hernia. ? CT scan of the abdomen and pelvis was obtained. ?This demonstrated: ? IMPRESSION: Fat-containing lower abdominal ventral hernia Plain Clothes Police Officer: PSCB ? Transcribe Date/Time: Sep ?3:27P Dictated by : MARCO ANTONIO SHEIKH MD This examination was interpreted and the report reviewed and electronically signed by: MARCO ANTONIO SHEIKH MD on Sep ?3:31PM ?EST ? ? Results-Findings ? * * *Final Report* * * DATE OF EXAM: Sep 11:11AM ? WR[facility] ??0531 ?- ?CT ABD/PEL WO IVCON ?/ PROCEDURE REASON: Incisional hernia, without obstruction or gangrene ? * * * * Physician Interpretation * * * * ?EXAMINATION: ?CT ABDOMEN AND PELVIS WITHOUT IV CONTRAST CLINICAL HISTORY: ?Hernia TECHNIQUE: Non-IV contrast imaging of the abdomen and pelvis was performed using standard technique, scanning from just above the dome of the diaphragm to the symphysis pubis. ?Unenhanced imaging is limited for the evaluation of some intra-abdominal and pelvic pathology. MQ: ?CTAPWO_3 Contrast: IV: None Oral: ?50 ml of 50ML Omnipaque [address] Radiation dose: Integrated Dose-length product (DLP) for this visit = ? 710 mGy*cm. CT Dose Reduction Employed: Automated exposure control(AEC) and iterative recon COMPARISON: None. RESULT: Abdomen / Pelvis: Liver: Unremarkable. Biliary: The gallbladder is unremarkable. ?No biliary dilatation. Spleen: No splenomegaly. Pancreas: Unremarkable. Adrenals: No mass. Kidneys: No calculus, hydronephrosis or finding to suggest a cyst or mass in the unenhanced kidney. GI Tract: No bowel dilation. Lymph Nodes: No lymphadenopathy. Mesentery/peritoneum: No ascites. Retroperitoneum: No mass. Vasculature: No abdominal aortic or iliac artery aneurysm. Pelvis: No mass or ascites. ?The bladder has a normal appearance. 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 ? There is a fat-containing lower ventral hernia. ?The opening measures 5 cm on image 122, series 3. ?There is a small fat-containing umbilical hernia. Lower thorax: No pleural effusion or consolidation. ? ? Measured defect is 6 x10cm and is 6cm from the pubic tubericle ? PAST?MEDICAL?HISTORY PAST MEDICAL HISTORY Diagnosis Date ? Gestational diabetes ? ? Gestational hypertension ? PAST?SURGICAL?HISTORY PAST SURGICAL HISTORY Procedure Laterality Date ? APPENDECTOMY ? ? ? DELIVERY ONLY ? ? ? x 2 ? ? ? CURRENT?MEDICATIONS ? No current outpatient medications on file. No current facility-administered medications for this visit.? ? ALLERGIES:?Ancef [Cefazolin Sodium] ? PERSONAL HISTORY:? SOCIAL?HISTORY Social History ??Socioeconomic History ?Marital status: ?Spouse name: Not on file ?Number of children: Not on file ?Years of education: Not on file ?Highest education level: Not on file ??Social Needs ?Financial resource strain: Not on file ?Food insecurity - worry: Not on file ?Food insecurity - inability: Not on file ?Transportation needs - medical: Not on file ?Transportation needs - non-medical: Not on file ??Occupational History ?Not on file ??Tobacco Use ?Smoking status: Former Smoker ?Packs/day: 0.50 ?Years: 19.00 ?Pack years: 9.5 ?Types: Cigarettes ?Quit date: 09/04/2018 ?Years since quittin.0 ?Smokeless tobacco: Never Used ??Substance and Sexual Activity ?Alcohol use: No ?Drug use: Yes ?Types: Marijuana ?Sexual activity: Not on file ??Other Topics ?Concerns: ?Not on file ??Social History Narrative ?Not on file ?? ? FAMILY HISTORY:? FAMILY?HISTORY FAMILY HISTORY Problem Relation Age of Onset ? Cancer Paternal Grandmother ? ? Cancer Maternal Grandmother ? ? Diabetes Maternal Aunt ? ? ? REVIEW OF SYMPTOMS: ??The review of systems data was entered by the nurse and reviewed by me ? Nursing Notes: Bhavik Hills LPN ?09/20/2018 ?3:14 PM ?Signed REVIEW OF SYSTEMS: ?General:???The patient notes fatigue, notes weight loss, denies weight gain, denies feeling hot, and denies feelings of cold. ?Eyes: ?The patient denies glaucoma, denies eye injury/surgery, wears glasses or contacts. ?Ear/Nose/Throat: ?The patient denies allergies, denies hayfever, notes ear infections, and notes bloody noses. ?Cardiovascular: ?The patient denies chest pain, denies heart disease, denies high blood pressure,denies cardiac stent, denies prior heart attack, denies irregular heart beat, denies high cholesterol, ?denies poor circulation, denies heart failure, other cardiac issues, denies claudication, denies cold feet, denies peripheral arterial stent. ?Respiratory: ?The patient denies tuberculosis, denies pneumonia, notes frequent cough, denies pulmonary embolism, denies shortness of breath, and denies coughing up blood. ?Gastrointestinal: ?The patient denies difficulty swallowing, denies acid reflux, denies ulcers, denies vomiting, denies jaundice/hepatitis, notes gallbladder problems, denies black or tarry stools, denies hemorrhoids, denies bleeding from rectum, denies diverticulitis, denies constipation, denies diarrhea, denies loss of stool control, and notes hernias. ?Kidney/Bladder: ?The patient denies kidney stones, denies urine infections, and denies bloody urine. ?Skin: ?The patient denies a history of skin cancer, denies bleeding/changing moles, and denies a history of skin rash. ?Neurologic: ?The patient denies a history of epilepsy/convulsions, denies headaches, denies head/spinal injuries, and denies stroke/TIA. ?Psychiatric: ?The patient denies psychiatric medications, denies depression, and denies voices, denies substance abuse. ?Endocrine: ?The patient denies thyroid disorders, NOTES diabetes, and denies hormonal problems. ?Hematologic: ?The patient denies a history of bruising, denies bleeding, and denies anemia, denies blood clots. ?Infections: ?The patient denies a history of measles and mumps, denies rheumatic fever, and notes sexually transmitted diseases. ?Musculoskeletal: ?The patient notes back pain/injury, notes back problems, notes sciatica, denies knee/foot trouble, notes arthritis, or denies gout. ? ? ? PHYSICAL EXAMINATION: ? General: ?The patient is 43 year old female, well nourished, well hydrated in no acute distress. ?The patient is oriented to time, place, and person. ? VITALS:?Blood pressure 124/72, pulse 76, temperature 36.6 ?C (97.8 ?F), temperature source Temporal Artery, SpO2 95 %.?There is no height or weight on file to calculate BMI.? ? HEENT: ?Normal cephalic, ataumatic, pupils are equally round, sclera are anicteric, mucous membranes are moist, oropharynx is clear. ?Neck has no masses, asymmetry or lymphadenopathy. ?Thyroid is unremarkable. ?Right superior facial piercing has a bridge of skin and granulation tissue consistent with chronic infection ? Respiratory: ?Clear to auscultation and percussion. ?Normal respiratory excursion and pattern. ? Cardiac: ?Examination is regular rate and rhythm. ? Abdominal exam: ?Soft, nontender, ?with no palpable masses. ?No hepatosplenomegaly. ?A large, reducible incision to the lower left of midline consistent with the Pfannenstiel incisional hernia ? Rectal exam: ?exam deferred ? Extremities: ?no clubbing, cyanosis or edema. ?No adenopathy. ? Other: ? ? LABORATORY VALUES: As Noted ? RADIOLOGIC STUDIES: ?As Noted ? The area near the patient was cleaned with alcohol and injected with local anesthetic and the previous piercing was removed. ? ? Assessment ? IMPRESSION: prior Pfannenstiel incisional hernia ? PLAN: ?? I plan to obtain a CT scan of the abdomen pelvis to assess for the size and haracteristics of this incisional hernia. ?The patient also will need to quit smoking prior to planning surgical procedure ? My plan is to perform a laparoscopic incisional hernia repair with mesh. ?The planned surgical procedure was discussed extensively with the patient. ?The risks, benefits, anticipated outcomes and possible complications were mentioned. ?[facility] all [facility] repair surgery has a chance of recurrence and/or chronic post operative pain. ?My staff has also explained the procedure in understandable terms and the patient was given the option to take printed material concerning the planned procedure. ?The patient had the opportunity to ask questions concerning the planned procedure. ?The patient freely consents to the planned procedure. ? ? A letter was sent to Dr. Shadi Marroquin MD indicating the above finding for this patient. ? Diagnoses:?(K43.2) Incisional hernia, without obstruction or gangrene ?(primary encounter diagnosis) ? Anticipated CPT Code: laparoscopic incisional hernia repair - 70196-553 ? Anticipated Anesthetic: General ? Patient weight:??Blood pressure 124/72, pulse 76, temperature 36.6 ?C (97.8 ?F), temperature source Temporal Artery, SpO2 95 %.?BMI: ?There is no height or weight on file to calculate BMI. ? Planned antibiotic: clindamycin 900mg IVPB [employer] to OR ? SCDs needed - Yes ? Amaury Salgado MD
[2018-10-01] VITALS (12 sets, daily range): BP systolic 103–146; BP diastolic 53–93; PULSE 48–65; RESP 14–18; TEMP 36.4–37.1; O2SAT 93–100; BMI 31.6
--- NOTE | 2018-10-01 10:50 | HERN_PTH ---
PATIENT: YASMIN TEMPLE JJ LOC: MS3 U#:[id number] AGE/SX: 43/F ROOM: MS312 RE10/01/[address]: Dr. Amaury Salgado MD : 1975 BED: 1 DIS: 10/03/2018 SPEC #: [id number] RECD: 10/02/18 08:41 STATUS: JACOB HOPE #: [id number] JAMES: 10/01/18 10:[address]: Amaury Salgado DEPT: SURGICAL PATHOLOGY RECD BY: Keisha Espinoza ENTERED: 10/02/18 11:26 SP TYPE: Hernia OTHR DR: No Primary Care Phys Tissues: HERNIA Procedures: Surgery Specimen Level II HEADER OPERATION: Laparoscopic, incisional hernia repair, umbilical hernia PRE-OP DIAGNOSIS: Prior Pfannenstiel incisional hernia TISSUE SUBMITTED: Hernia sac MICROSCOPIC DIAGNOSIS Hernia sac: Fibroadipose and fibroconnective tissue, consistent with hernia sac with focal dense fibrosis. Skin, no pathologic diagnosis. AARON:rian 10/03/18 MICROSCOPIC DESCRIPTION Slides are reviewed. GROSS DESCRIPTION Received in fixative is one container labeled with the patient's name and designated hernia sac. The specimen consists of a piece of maya-yellow fibroadipose tissue measuring 12 x 10 x 3 cm. A piece of skin is also noted at one edge measuring 5 x 1.5 cm. A central scar is also noted. Sections do not reveal any mass lesion. Residential [employer]ge sections are submitted in two cassettes. / AARON:rian 10/02/18 TC:5 CPT: 59089
[2018-10-01] MEDS: Bupivacaine Mpf 0.5% 30 ML VIAL (14:47)
--- NOTE | 2018-10-01 14:53 | PCM.OPRPT ---
Report of Operation Date of Procedure: 10/01/18 Pre-Operative Diagnosis: incisional and umbilical incisional hernia Post-Operative Diagnosis: pfannistiel incisional hernia - , 1cm umbilical hernia Surgery/Procedure Performed:: lap assisted lower incisional, lap umbilical/ incisional hernia with [id number] double layered prolene - anterior to rectus, retrofascial, using proleen mesh - PML Lot [id number] exp 02/09/2022 and intraperitoneal Ventralex 6.4cm buckland mesh - Ref [id number], LOt [id number] Exp 05/09/2020 bilingual recruiter: Romina Mata Type of Anesthesia:: General Anesthesiologist: Chaim Alejo ASA2 Specimen's removed: hernia sac Estimated Blood Loss (mL): <50 Fluids Replaced: 1400 urine 650 Description of Procedure: The patient was brought to the operating suite. Sign in was performed verifying patient, site, procedure, position, and DVT prophylaxis with SCDs. Patient received 900 mg of clindamycin due to penicillin allergy for antibiotic prophylaxis. Following induction of general anesthetic, the patient?s abdomen was prepped and draped in the usual fashion. Timeout was performed verifying patient, site, position. Local anesthetic was injected . A linear incision was made and dissection carried down at the level of the umbilicus to the small umbilical incisionalhernia defect. The hernia sac was opened . 2 stay sutures were placed and the Murillo trocar was inserted and secured with the stay sutures. 3- 5mm ports were placed in the far left lateral position, and right and left upper lateral positions There was significant omentum adherent within the Pfannenstiel incisional hernia sac. This was dissected off the hernia sac and then dissected off the fascial defect margin. with dissecting off the adherent omentum and partially dissection of the hernia sac there was noted to be a space developed between the rectus sheath and the rectus muscle such that the rectus defect was probably only 5 x 5 cm with a much larger extra rectus subfascial dissected plane. At this point, I elected to open and finished dissecting the hernia sac and repair the mesh within the inlay mesh technique. An elliptical incision was made in the skin dissecting the excess skin and then the hernia sac was fully dissected from below the skin to the edge of the rectus defect. The hernia sac was fully dissected off the fascia which was in the lower midline with the defect again of about 5 cm with significant undermining. Once the sac was fully dissected the rectus muscles were from the fascial defects completely allowing approximately a 10 x 10 cm area underneath both right and left fascial flaps. The rectus muscles were then reapproximated midline with a running 0 Vicryl suture. Polypropylene mesh 10 x 10 cm square was placed over the rectus muscle and secured with interrupted 0 Prolene sutures at the outer margin. The fascial edges were then cleaned up and the fascia was closed with a running 0 Prolene sutures after interrupted sutures were placed. the peritoneum was then reestablished. The falciform ligament was also divided to prevent tenting. A 6.4 cm circular ventral ex mesh placed intra-abdominally. A Prolene suture was placed through the superior aspect of the mesh brought up with a Granee needle to just the upper midline allowing good overlap between the edge of the mesh and the superior aspect of the defect. Prolene sutures were placed transfixing the fascia at 12 , 6 , 3 and 9:00 using a GraNee needle . The mesh was then tacked using a pro-tack tacker around the outer rim of the mesh and then in multiple locations in the inner mesh Subcutaneous fat was closed with interrupted 3-0 Vicryl suture. Skin was closed with a running and inturrepted 4-0 Monocryl subcuticular sutures. Steri-Strips and bandages were applied. The patient was brought to recovery room in stable condition. - Admit VTE Documentation VTE Present on Admission: No VTE Mechan Device Prophylaxis: SCD's VTE Pharm Prophylaxis ordered?: Yes
--- NOTE | 2018-10-01 14:57 | OP.PCM_ITS ---
Report of Operation Date of Procedure: 10/01/18 Pre-Operative Diagnosis: incisional and umbilical incisional hernia Post-Operative Diagnosis: pfannistiel incisional hernia - , 1cm umbilical hernia Surgery/Procedure Performed:: lap assisted lower incisional, lap umbilical/ incisional hernia with [id number] double layered prolene - anterior to rectus, retrofascial, using proleen mesh - PML Lot [id number] exp 02/09/2022 and intraperitoneal Ventralex 6.4cm iliamna mesh - Ref [id number], LOt [id number] Exp 05/09/2020 civil service clerk: Romina Maat Type of Anesthesia:: General Anesthesiologist: Chaim Alejo ASA2 Specimen's removed: hernia sac Estimated Blood Loss (mL): <50 Fluids Replaced: 1400 urine 650 Description of Procedure: The patient was brought to the operating suite. Sign in was performed verifying patient, site, procedure, position, and DVT prophylaxis with SCDs. Patient received 900 mg of clindamycin due to penicillin allergy for antibiotic prophylaxis. Following induction of general anesthetic, the patient?s abdomen was prepped and draped in the usual fashion. Timeout was performed verifying patient, site, position. Local anesthetic was injected . A linear incision was made and dissection carried down at the level of the umbilicus to the small umbilical incisionalhe rnia defect. The hernia sac was opened . 2 stay sutures were placed and the Murillo trocar was inserted and secured with the stay sutures. 3- 5mm ports were placed in the far left lateral position, and right and left upper lateral positions There was significant omentum adherent within the Pfannenstiel incisional hernia sac. This was dissected off the hernia sac and then dissected off the fascial defect margin. with dissecting off the adherent omentum and partially dissection of the hernia sac there was noted to be a space developed between the rectus sheath and the rectus muscle such that the rectus defect was probably only 5 x 5 cm with a much larger extra rectus subfascial dissected plane. At this point, I elected to open and finished dissecting the hernia sac and repair the mesh within the inlay mesh technique. An elliptical incision was made in the skin dissecting the excess skin and then the hernia sac was fully dissected from below the skin to the edge of the rectus defect. The hernia sac was fully dissected off the fascia which was in the lower midline with the defect again of about 5 cm with significant undermining. Once the sac was fully dissected the rectus muscles were from the fascial defects completely allowing approximately a 10 x 10 cm area underneath both right and left fascial flaps. The rectus muscles were then reapproximated midline with a running 0 Vicryl suture. Polypropylene mesh 10 x 10 cm square was placed over the rectus muscle and secured with interrupted 0 Prolene sutures at the outer margin. The fascial edges were then cleaned up and the fascia was closed with a running 0 Prolene sutures after interrupted sutures were placed. the peritoneum was then reestablished. The falciform ligament was also divided to prevent tenting. A 6.4 cm circular ventral ex mesh placed intra- abdominally. A Prolene suture was placed through the superior aspect of the mesh brought up with a Granee needle to just the upper midline allowing good overlap between the edge of the mesh and the superior aspect of the defect. Prolene sutures were placed transfixing the fascia at 12 , 6 , 3 and 9:00 using a GraNee needle . The mesh was then tacked using a pro-tack tacker around the outer rim of the mesh and then in multiple locations in the inner mesh Subcutaneous fat was closed with interrupted 3-0 Vicryl suture. Skin was closed with a running and inturrepted 4-0 Monocryl subcuticular sutures. Steri-Strips and bandages were applied. The patient was brought to recovery room in stable condition. - Admit VTE Documentation VTE Present on Admission: No VTE Mechan Device Prophylaxis: SCD's VTE Pharm Prophylaxis ordered?: Yes
[2018-10-01] MEDS: Lactated Ringers 1,000 ML 70 ML IV (16:35)
[2018-10-01] MEDS: Morphine 4 MG/ML Syringe IV ×2 (19:43→21:34)
[2018-10-01] MEDS: Ondansetron 4 MG/2 ML Vial IV (21:34)
--- NOTE | 2018-10-01 23:06 | NURSING ---
FULLING MILL OPERATOR assisted patient with ambulating in hallway, patient became nauseated, patient assisted back to bed and this RN gave patient PRN zofran per PRN orders.
[2018-10-01] MEDS: HYDROcodone Bitartrate/Apap 5/325 Tablet PO (23:24)
[2018-10-01] MEDS: proCHLORPERazine 10 MG/2 ML Vial IV (23:28)
[2018-10-02 03:50] VITALS: BP 132/63; PULSE 54; RESP 16; TEMP 36.8; O2SAT 99
[2018-10-02] MEDS: Morphine 4 MG/ML Syringe IV ×2 (03:54→10:32)
[2018-10-02] MEDS: Lactated Ringers 1,000 ML 70 ML IV (05:34)
[2018-10-02] MEDS: HYDROcodone Bitartrate/Apap 5/325 Tablet PO ×3 (05:34→19:20)
[2018-10-02 10:00] VITALS: BP 107/66; PULSE 65; RESP 16; TEMP 37.2; O2SAT 99
[2018-10-02] MEDS: Ondansetron 4 MG/2 ML Vial IV (10:28)
[2018-10-02 14:42] VITALS: BP 104/58; PULSE 59; RESP 18; TEMP 36.8; O2SAT 98
[2018-10-02] MEDS: oxyCODONE 5 MG Tablet PO ×2 (17:29→22:56)
--- NOTE | 2018-10-02 18:15 | PN.SURG_ITS ---
Subjective: significant lower incisional pain - Physical Exam General: Alert, Oriented x3 Lungs: Clear to auscultation, Normal air movement Cardiovascular: Regular rate, Regular Rhythm Abdomen: Bowel Sounds Present, Soft, Tender - at lower Pfannenstiel incision/hernia repair site, minimal tenderness at umbilical hernia site Vital Signs Temp Pulse Resp BP Pulse Ox 98.2 F 59 L 18 104/58 L 98 10/02/18 14:42 10/02/18 14:42 10/02/18 14:42 10/02/18 14:42 10/02/18 14:42 Oxygen Delivery Method Room Air Weight: 86.2 kg Body Mass Index (BMI) 31.6 Finger Stick Blood Glucose 121 Intake and Output for Last 24 Hours 09/30/18 10/01/18 10/02/18 23:59 23:59 23:59 Intake Total 4160 / 4160 1931 Output Total 350 / 350 Balance 3810 / 3810 1931 Medical Necessity - Tobacco Use Smoking Status: Former smoker Assessment/Plan All Active Problems (Last Updated 11/04/17 @ 12:14 by Obdulia Suazo MD) 36 weeks gestation of (Acute) Chronic hypertension (Acute) POD # 1 s/p combined laparoscopic umbilical and laparoscopic converted to open P fannenstiel incisional hernia repair with 10 x 10 cm mesh and closure of fascia and rectus in layers. Patient with few bowel sounds this morning. Tolerating liquids. We'll advance diet as tolerated. Patient with significant incisional pain. Still requiring parenteral narcotics. We will attempt to transition to oral medications as possible. Anxiety about activities of daily living at home due to multiple aged children including and lack of significant assistance at home. We will encourage incentive spirometry and ambulation.
[2018-10-02 19:29] VITALS: BP 149/80; PULSE 64; RESP 18; TEMP 37.5; O2SAT 99
[2018-10-02] MEDS: Docusate Sodium 100 MG Capsule PO (21:31)
[2018-10-03 01:30] VITALS: BP 134/87; PULSE 65; RESP 18; TEMP 37.1; O2SAT 98
[2018-10-03] MEDS: HYDROcodone Bitartrate/Apap 5/325 Tablet PO (01:30)
[2018-10-03] MEDS: oxyCODONE 5 MG Tablet PO (06:27)
--- NOTE | 2018-10-03 06:42 | DCINST_ITS ---
Discharge Diet: Light diet - advance as tolerated Discharge Activity: Return to Normal Activity, May Drive - when you are no longer taking narcotic pain medications., May Shower - with the bandage in place 1-2 days after surgery. Lifting Restrictions: 20 pounds for 8 weeks. Additional Activity Instructions:: Climbing stairs is fine, walking is encouraged. Sitting in bed may be uncomfortable. Sitting up using your lateral muscles (sitting up sideways) is usually more comfortable. Do not drive, work heavy equipment of sign legal documents for 24 hours. If your hernia repair was an ingunial repair, you may have scrotal swelling, an ice pack and/or athletic support can provide more comfort. Pain medications may cause nausea, you should typically eat light foods as you take your pain medications. Pain medications may also cause constipation. If you have difficulty with this, discuss with your doctor. Call your doctor if your incision/area has: Continuous Slow Oozing, Sudden Increased Bleeding, Increased Pain/ Swelling, Increased Redness, Foul Smelling Discharge Call your doctor if you observe: Fever of 101 or Higher Suture Line Care: Avoid Pulling/Pushing, Avoid Pinching/Bending Additional Dressing/Incision Instructions:: Leave the operative bandage on for 2-3 days. When you remove the bandage, leave the steri-strips on place until your follow up appointment or they fall off. Allergies/Adverse Reactions: Allergies cefazolin sodium [From Ancef] Allergy (Verified 10/01/18 09:25) Hives Medications to take at Discharge Acetaminophen [Tylenol] 1,000 mg PO Q8H PRN tablet 01/20/18 Oxycodone HCl/Acetaminophen [Percocet 5/325] 1 tab PO Q6H PRN PRN 7 Days #20 tab 10/03/18 The following prescriptions were given: Oxycodone HCl/Acetaminophen [Percocet 5/325] 1 tab PO Q6H PRN PRN 7 Days #20 tab PRN Reason: Pain Primary Care Physician: Care Physician,No Primary [Primary Care Provider] - Test Results: Test results from this visit will be discussed in further detail at your follow- up appointment, if applicable. Please Follow Up With: Amaury Salgado MD - [phone] When: Plan to have a follow up appointment in 7 days. Call to schedule.
[2018-10-03 07:32] VITALS: BP 122/65; PULSE 65; RESP 18; TEMP 36.9; O2SAT 96
[2018-10-03] MEDS: Docusate Sodium 100 MG Capsule PO (07:39)
== END 2018-10-03 08:30 | disposition home or self-care (01) ==
LOC: SDC 10-02 08:21 → MS3 10-02 08:21
PROVIDERS: Admitting Provider Surgery; Referring Provider Surgery; Visit Provider Surgery
PROC: 0WQF4ZZ Repair Abdominal Wall, Percutaneous Endoscopic Approach (ICD-10-PCS; CPT 49560; principal; 2018-10-01 10:30)
DX: K43.2 Incisional hernia without obstruction or gangrene (principal); Z87.891 Personal history of nicotine dependence
CPT/HCPCS: 00832; 49560; 49568; 88302; 96374; 96375; 96376; 99218; C1781; J7120; G0378; G0379; J2405

== ENCOUNTER 2019-08-15 11:53 | Emergency (ER) | payer MEDICARE, MEDICAID, SELFPAY ==
[2018-10-01 09:26] VITALS: BMI 31.6
[2019-08-15 11:54] VITALS: BP 146/93; PULSE 76; RESP 16; TEMP 36.7; O2SAT 97; BMI 30.7
--- NOTE | 2019-08-15 13:13 | ED.DCSUM_ITS ---
- ER Visit Summary Date of Service: 08/15/19 Chief Complaint: Left sciatica History of Present Illness: The patient is a [address] sciatica. No prior back surgery. Patient states for last 4 days she has had left lower back pain worse with leg movement. Denies any falls or trauma. No fever. No bowel or bladder incontinence. She is had normal bowel movements and urinating normally over the last several days. No fever. Physical Examination: Middle-aged female complaining of pain vital signs stable afebrile. H EENT exam unremarkable. Neck nontender. Lungs clear to auscultation bilaterally. Heart regular rhythm no murmur. Abdomen soft nontender normal bowel sounds no peritoneal signs. No pulsatile mass. Extremities moves all 4. Neurovascularly intact. She is equal symmetrical cobol application developer strength. Dorsi plantarflexion intact. She does not want to move her left leg because she states when she raises it makes the pain worse and go down her leg. There is no cauda equina. No saddle anesthesia. Normal dorsi and plantar flexion. Normal DP pulse. Back the spine is nontender. The left SI joint is tender to palpation. There is no redness or warmth. No bruising or signs of trauma. Neurologic exam is normal. No focal motor weakness or numbness. Test Results: None Emergency Department Course and Treatment: Patient's history and exam are consistent with acute left-sided sciatica. She has a history of the same. She will be treated with IM Toradol and morphine here. P.o. Zofran. Discharged home with a ride. Limited Melissa at home for pain. She will continue anti- inflammatories and follow-up. Treatment Plan: Ice to the area. Motrin or Naprosyn for pain and inflammation. Limited Melissa. Follow-up. Disposition: Discharge Impression: Acute on chronic left-sided sciatica This note was generated with [employer] dictation software. It may contain incorrect words, spelling, and punctuation that were not noted in review of the chart prior to signing ED Disposition - Plan for ED Patient: Referrals: Care Physician,No Primary [Primary Care Provider] -
--- NOTE | 2019-08-15 13:15 | ED.DEP ---
ED Disposition - Plan for ED Patient: Disposition: Home or Assisted Living Instructions: BACK PAIN w/ SCIATICA Prescriptions: Hydrocodone/Acetaminophen [[facility] 10-325 Tablet] 1 ea PO 4X/DAY PRN PRN 4 Days #14 tab PRN Reason: sciatica Prescription Printed Referrals: Mehdi Mathew MD [NON-STAFF] - As soon as possible Additional Instructions: Ice to your left sciatica. Naprosyn, Motrin or Aleve not all 3 of the inflammation in your back. [facility] for more severe pain. Do not drink or drive while using the [facility]. Plenty of fluids and fiber to prevent you from getting constipated. This should progressively improve over the next several days if not you need further evaluation.
[2019-08-15] MEDS: Ketorolac 60 MG/2 ML Vial IM (13:37)
[2019-08-15] MEDS: morphine 10 MG/ML Syringe IM (13:37)
[2019-08-15] MEDS: Ondansetron 8 MG Tablet PO (13:38)
[2019-08-15 14:02] VITALS: BP 142/67; PULSE 67; RESP 16; O2SAT 97
== END 2019-08-15 14:04 | disposition home or self-care (01) ==
PROVIDERS: Emergency Provider Emergency Medicine
DX: M54.42 Lumbago with sciatica, left side (principal); Z72.0 Tobacco use
CPT/HCPCS: 96372; 99282

== ENCOUNTER 2019-08-17 19:33 | Emergency (ER) | payer MEDICARE, MEDICAID, SELFPAY ==
[2019-08-17 19:34] VITALS: BP 168/113; PULSE 84; RESP 17; TEMP 36; O2SAT 99; BMI 30.6
[2019-08-17 19:43] VITALS: BP 167/90
--- NOTE | 2019-08-17 20:01 | CT_ITS ---
STUDY: CT LUMBAR SPINE WITHOUT CONTRAST REASON FOR EXAM: Female, 44 years old. LEFT SCIATICA X 6 DAYS. H/O BACK CURVATURE, SPASMS RADIATION DOSAGE (If Supplied By Facility): CTDIvol = ( 17.75 ) mGy, DLP = ( 608.93 ) mGycm TECHNIQUE: The patient was scanned in a multi detector CT scanner. High resolution transaxial imaging was performed. Images were obtained from T12 to S1. Sagittal and coronal images were reconstructed. Individualized dose optimization techniques were used for this CT. COMPARISON: X-ray 04/01/2014 FINDINGS: Normal lumbar lordosis. There is a levoscoliosis of the lumbar spine. Normal vertebrae of the lumbar spine. L1-2: Mild bilobed disc osteophyte complex produces mild spinal stenosis and mild bilateral neural foraminal stenosis. L2-3: Normal endplates. Normal disc height and morphology. Normal bilateral facet joints. Normal central canal and bilateral lateral recesses. Normal bilateral intervertebral neural foramina. L3-4: Mild broad disc osteophyte complex produces mild spinal stenosis and mild bilateral neural foraminal stenosis. L4-5: Mild bilateral facet hypertrophy and ligament flavum hypertrophy. Moderate broad disc protrusion produces moderate spinal stenosis and moderate bilateral neural foraminal stenosis. L5-S1: Normal endplates. Normal disc height and morphology. Normal bilateral facet joints. Normal central canal and bilateral lateral recesses. Normal bilateral intervertebral neural foramina. Normal visualized paraspinous soft tissue structures. CT/Spine Lumbar without Contrast IMPRESSION: Levoscoliosis and degenerative disc disease as described above. MRI would be much more useful. Electronically Signed: Amaury Santos MD at 21:03 EST Tel , Service support ,
--- NOTE | 2019-08-17 20:03 | ED.DCSUM_ITS ---
History of Present Illness Chief Complaint: Back Informant: Patient Onset: Days - 6 Narrative: Worsening left-sided back pain for the past 6 days with pain down her leg to her calf. No loss of bowel or bladder control. No saddle anesthesia. Was seen 2 days ago in the ED was given pain injection and a prescription for Dacula for which she states she has about 4 tabs left last dose was 1 hour ago. States was able to stand at work yesterday however went home symptoms worsen. History of sciatica with no back surgeries. Has seen Dr. Lee, last seen 2 years ago. Reports was getting injections and was placed on fentanyl patches for which she did not want to be on due to family members being addicted to opiates. She reports he wanted an MRI however insurance would not approve this. She states she lost weight and was doing well with only mild intermittent symptoms. Last time was couple months ago up to 6 days ago. Denies history of gastric ulcers or kidney injuries. Prior similar symptoms: Yes Past Medical History - Allergies and Home Meds Allergies/Adverse Reactions: Allergies cefazolin sodium [From [facility]] Allergy (Verified 08/17/19 19:33) Ishmael Primary Care Physician: Care Physician,No Primary [Primary Care Provider] - Past Medical History: - - Sciatica Smoking Status: Current every day smoker Review of Systems General: Denies: Chills, Fever, Sweats Eyes: Denies: Visual changes - bilaterally, Diplopia ENT: Denies: Rhinorrhea, Sore throat Cardiovascular: Denies: Chest pain, Palpitations Respiratory: Denies: Dyspnea, Cough, Dyspnea on exertion Gastrointestinal: Denies: Abdominal pain, Nausea, Vomiting, Diarrhea, Melena, Hematochezia Genitourinary: Denies: Dysuria, Hematuria, Frequency Musculoskeletal: Reports: Back pain. Denies: Extremity Pain Skin: Denies: Rash, Wounds Neurological: Denies: Headache, Weakness, Numbness Physical Exam Vital Signs/Narrative: Vital Signs Temp Pulse Resp BP Pulse Ox 08/17/19 19:43 167/90 H 08/17/19 19:34 96.8 F L 84 17 168/113 H 99 Inital Vital Signs reviewed: Yes General: Well nourished, Well developed, - - Patient uncomfortable. Head: Normocephalic, Atraumatic Eyes: Perrl, EOMI ENT: Moist mucous membranes, No rhinorrhea Neck: Supple, Nontender Cardiovascular: Regular rate, Regular rhythm, No murmurs Respiratory: No distress, CTA bilaterally, Chest nontender Abdomen: Soft, Nontender, Nondistended, Normal bowel sounds Back: - - Left paralumbar tenderness worsening pain with leg movement. Extremities: Nontender, No edema Skin: Normal color, No rash Neurological: Alert, Oriented x3, Cranial nerves II-XII grossly intact, Normal Strength, Normal Sensation Psychological: Normal affect, Normal Mood Diagnostic/Tx/Re-eval - Medical Decision Making Clinical Impression(s) from Imaging Studies Lumbar Spine CT 08/17/19 20:01 IMPRESSION: Levoscoliosis and degenerative disc disease as described above. MRI would be much more useful. Electronically Signed: Amaury Santos MD at 21:03 EST Tel , Service support , Patient presenting with lumbar radicular symptoms, there is no cauda equina symptoms. There is no indication for emergent MRI at this time however this would be more useful. Symptoms IV was placed given Toradol, Valium, Solu-Medrol and morphine. Secondary to no reported imagings, CT scan lumbar spine obtained noting significant degenerative changes with spinal stenosis along with L4-L5 disc protrusion. Reevaluation symptoms more controlled, reports Dacula is not helping as compared to these medications. She does have Aleve at home for which she will continue prescription for Valium and steroids. She will call follow-up with Dr. Lee as an outpatient. ED Disposition - Plan for ED Patient: Disposition: Home or Assisted Living Diagnosis: Lumbar radicular pain, Spinal stenosis of lumbar region Instructions: BACK PAIN w/ SCIATICA Prescriptions: predniSONE tablet 60 mg PO DAILY #15 tab Transmission Status: Pending to [email or web address] [place] Diazepam [Valium] 5 mg PO Q8 PRN #12 tab PRN Reason: Muscle Spasm Transmission Status: Sent to [email or web address] [place] Referrals: Care Physician,No Primary [Primary Care Provider] - Cailin Lee MD [STAFF PHYSICIAN] - 2 Days
[2019-08-17] MEDS: diazePAM 5 MG Tablet PO (20:13)
[2019-08-17] MEDS: Ketorolac 30 MG/ML Syringe IV (20:18)
[2019-08-17] MEDS: Morphine 4 MG/ML Syringe IV (20:20)
[2019-08-17] MEDS: MethylPREDNISolone 125 MG/2 ML Vial IV (20:20)
== END 2019-08-17 21:33 | disposition home or self-care (01) ==
PROVIDERS: Emergency Provider Emergency Medicine
DX: M48.061 Spinal stenosis, lumbar region without neurogenic claudication (principal); M51.16 Intervertebral disc disorders with radiculopathy, lumbar region; F17.200 Nicotine dependence, unspecified, uncomplicated
CPT/HCPCS: 72131; 96374; 96375; 99284; A4216

== ENCOUNTER 2022-01-29 22:26 | Emergency (ER) | payer MEDICARE, MEDICAID, SELFPAY ==
[2022-01-29 22:27] VITALS: BP 159/118; PULSE 83; RESP 16; TEMP 36.5; O2SAT 98; BMI 34.3
--- NOTE | 2022-01-29 22:56 | EKG12_ITS ---
Test Reason : CP Blood Pressure : / mmHG Vent. Rate : 068 BPM Atrial Rate : 068 BPM P-R Int : 174 ms QRS Dur : 082 ms QT Int : 412 ms P-R-T Axes : 047 -02 005 degrees QTc Int : 438 ms Normal sinus rhythm Septal infarct , age undetermined , cannot be excluded Abnormal ECG Confirmed by JAZMIN LOPEZ, SANDY ([id number]), production editor JERED HAMMOND ([id number]) on 02/01/2022 12:48:24 PM Referred By: Confirmed By:SANDY WU MD
--- NOTE | 2022-01-29 22:57 | ED.VIS.CHEST ---
HPI History of Present Illness Chief Complaint: Chest Pain Informant: patient Narrative Narrative: Patient presents for multiple reasons. She has been having palpitations off and on for the last couple of months that feels like my heart is pausing. Not associated with discomfort, dyspnea, lightheadedness, or syncope. However, tonight she was in emotional distress when 2 of her children were having a verbal argument and threatening each other. During this, she became anxious and tearful and developed discomfort left chest inframammary and some discomfort in her left upper arm and she became lightheaded at 1 point and felt more of these skips. None of the chest or arm discomfort is there right now, she cannot tell me how long it lasted, maybe 20 or 30 minutes or so, and she is very anxious knowing that her father had a history of heart surgery. She has never seen anyone for these palpitations in the past couple months but states that she did have them when she was years ago and had a Holter monitor for but cannot tell me anything else. She smokes. She uses marijuana she does not do any other drugs. She drinks a lot of caffeine. She also is untreated for her bipolar disorder, she was on a medication that she discontinued her self several months ago because it gave her some type of rash. [facility] Medical History (Updated 01/30/22 @ 00:[address] David Salas MD) Bipolar disorder Chronic hypertension Chronic hypertension affecting Gestational diabetes mellitus (GDM) Home Medications acetaminophen 500 mg tablet 1,000 mg PO Q8H PRN Mild Pain (1-3) 01/20/18 [Rx Last Taken Unknown] diazepam 5 mg tablet 5 mg PO Q8 PRN Muscle Spasm #12 tabs 08/17/19 [Rx Last Taken Unknown] prednisone 20 mg tablet 60 mg PO DAILY #15 tabs 08/17/19 [Rx Last Taken Unknown] Allergy/AdvReac Type Severity Reaction Status Date / Time cefazolin sodium [From [facility]] Allergy Hives Verified 01/29/22 22:28 Surgical History Previous section Social History (Updated 01/29/22 @ 22:[address] David Salas MD) Smoking Status: Current every day smoker tobacco type: cigarettes substance use type: marijuana ROS ROS ED Constitutional Constitutional ED: Denies chills or fever(s) Eyes Eyes: Denies change in vision or diplopia ENT ENT ED: Denies rhinorrhea or sore throat Cardiovascular Cardiovascular: Reports as per HPI, chest pain, lightheadedness and palpitations Respiratory/Chest Respiratory/Chest: Denies cough or dyspnea Gastrointestinal Gastrointestinal: Denies abdominal pain, diarrhea, nausea or vomiting Genitourinary Genitourinary ED: Denies dysuria or hematuria Musculoskeletal Musculoskeletal: Denies back pain or neck pain Integumentary Denies abscess or rash Neurologic Neurologic: Denies headache(s), paresthesias or weakness Psychiatric Psychiatric: Reports anxiety; Denies suicidal thoughts EXAM Physical Exam Const Vital Signs: 01/29/22 22:27 01/29/22 23:08 01/29/22 23:09 Temperature 97.7 F L Temperature Source Temporal Pulse Rate 83 Respiratory Rate 16 Respiratory Effort Normal Non-Labored Blood Pressure 159/118 H Blood Pressure Mean 131 Pulse Ox 98 Oxygen Delivery Method Room Air Room Air 01/30/22 00:12 Temperature Temperature Source Pulse Rate 72 Respiratory Rate 17 Respiratory Effort Blood Pressure Blood Pressure Mean Pulse Ox 97 Oxygen Delivery Method Room Air Positive well nourished, well developed and obese General Appearance ED: well developed and NAD Nutritional Appearance: obese HEENT Reports moist mucous membranes normocephalic and atraumatic Eyes PERRL and EOMs intact bilaterally Neck full ROM, supple and no JVD Resp normal respiratory effort and clear to auscultation bilaterally Cardio regular rate, regular rhythm and no murmurs Cardio Narrative: Occasional irregularity, coinciding with PVC on monitor Rate: Negative for tachycardic GI non-tender and non-distended Auscultation: normoactive bowel sounds Palpation: soft Back/Spine no CVA tenderness General Back: other FROM Extremity normal to inspection and no calf tenderness General Extremety ED: Negative for edema, pulses abnormal or tenderness General Extremity: Negative for edema or pulses abnormal Neuro oriented x3, CN's II-XII intact bilaterally and no sensory deficits noted Sensorium / Orientation: awake and alert Motor Exam: strength 5/5 throughout Psych Mood & Affect: anxious and tearful Skin no rashes or lesions noted and no wounds Heart Score History: Slightly/Non-Suspicious ECG: Normal Age: >45 - <65 years Risk Factors: 1 or 2 Risk Factors Troponin: </= Normal Limit Score: 2 MDM MDM MDM Narrative Medical decision making narrative: Patient has a cardiac work-up that is normal. She did have some occasional PVCs here that are symptomatic, she was reassured about this, safe for outpatient follow-up and further evaluation. She also needs to have her blood pressure rechecked as an outpatient, she is very anxious here, so because of that I am not necessarily going to start her on antihypertensives in this context. She needs it rechecked when she is feeling more calm. Lab Data Attestation: I reviewed the patient's lab results. Labs: Laboratory Results - last 24 hr 01/29/22 01/29/22 23:00 23:00 WBC 11.2 H RBC 5.35 Hgb 14.2 Hct 43.9 MCV 82.1 MCH 26.5 L MCHC 32.3 RDW Std Deviation 45.0 H RDW Coeff of [place] 15.0 H Plt Count 334 MPV 9.5 Immature Gran % (Auto) 0.900 Neut % (Auto) 67.7 Lymph % (Auto) 23.9 [place] % (Auto) 5.9 Eos % (Auto) 1.0 Baso % (Auto) 0.6 Absolute Neuts (auto) 7.6 Absolute Lymphs (auto) 2.68 Nucleated RBC % 0 Sodium 140 Potassium 3.5 Chloride 109 H Carbon Dioxide 25.0 Anion Gap 6 BUN 9 Creatinine 0.65 Estim Creat Clear Calc 93.39 Est GFR (MDRD) Af Amer 126 Est GFR (MDRD) Non-Af 104 BUN/Creatinine Ratio 13.8 Glucose 120 H Calcium 8.9 Troponin I High Sens 4 Radiography Chest X-Ray - ED: 2 View, Read by ED Physician, Normal and No Acute Disease Diagnostic Testing: Clinical Impression(s) from Imaging Studies Chest X-Ray 01/29/22 23:15 IMPRESSION: No radiographic evidence of acute cardiopulmonary disease. Electronically Signed: Joey Mckeon MD at 23:34 EDT , Rhythm Strip Rhythm Strip: Sinus Rhythm Rate: 70 Ectopy: PVC(s) EKG Initial EKG: Attestation: I personally reviewed and interpreted this EKG as follows: Interpretation: Sinus Rhythm and No Acute Injury Pattern Comments: Normal EKG Discharge Plan Triage Chief Complaint: Chest Pain ED Provider: David Salas Dx/Rx/DC Orders Clinical Impression: Left-sided chest pain, Ventricular ectopy, Anxiety Instructions: PVCs Prescriptions: No Action acetaminophen 500 MG tablet 1,000 mg PO Q8H PRN (Reason: Mild Pain (-08/19)) 0RF prednisone 20 MG tablet 60 mg PO DAILY Qty: 15 0RF diazepam 5 MG tablet 5 mg PO Q8 PRN (Reason: Muscle Spasm) Qty: 12 0RF Primary Care Provider: Care Physician,No Primary Referrals: Sherrie Alberts MD [Med Staff - Active Staff] - (call for appt) Care Physician,No Primary [Primary Care Provider] - Activity Restrictions/Additional Instructions: Try to decrease your caffeine intake, it is possible your skipped heartbeats will resolve as a result. Disposition Disposition: Home, Self Care
--- NOTE | 2022-01-29 23:15 | RAD_ITS ---
INDICATION: chest pain EXAMINATION/TECHNIQUE: X-RAY - XR Chest 2 Views COMPARISON: August 21, 2017. FINDINGS: LINES/DEVICES: None. LUNGS: No consolidation, edema or effusion. No pneumothorax. MEDIASTINUM AND CARDIOVASCULAR STRUCTURES: Cardiac silhouette not enlarged. Central airways and mediastinal contour are unremarkable. BONES AND SOFT TISSUES: Unremarkable. RAD/Chest PA and Lateral IMPRESSION: No radiographic evidence of acute cardiopulmonary disease. Electronically Signed: Joey Mckeon MD at 23:34 EDT ,
[2022-01-29 23:36] LABS: Anion Gap 6 (5-15); BUN 9 mg/dL (7-18); BUN/Creat Ratio 13.8 RATIO (10-20); Calcium,Total 8.9 mg/dL (8.5-10.1); Chloride 109 mmol/L (98-107); Creatinine, Serum 0.65 mg/dL (0.55-1.02); EST Glomerular Filtration Rate 104 mL/min (>60); Est Glom Filt Rate - Afr Amer 126 mL/min (>60); Estimated Creatinine Clearance 93.39 ml/min; Glucose 120 mg/dL (74-106); Potassium 3.5 mmol/L (3.5-5.1); Sodium Level 140 mmol/L (136-145); Troponin-I HS (w/2H Reflex) 4 pg/mL (3.0-54.0)
[2022-01-29 23:40] LABS: Absolute Lymphocyte Count 2.68 X10^3/uL (0.83-4.51); Absolute Neutrophil Count 7.6 X10^3/uL (2.0-7.7); Basophil# 0.07 X10^3/uL; Basophil% 0.6 % (0-1); Eosinophil# 0.11 X10^3/uL; Hematocrit 43.9 % (37-47); Hemoglobin 14.2 g/dL (12.0-15.0); Lymphocyte # 2.68 X10^3/ul (0.83-4.51); Lymphocyte % 23.9 % (19-41); Mean Corp Hgb Conc 32.3 g/dL (32-36); Mean Corpuscular Hgb 26.5 pg (27.0-32.0); Mean Corpuscular Volume 82.1 fL (81-99); Mean Platelet Vol. 9.5 fl (6.2-12.0); Monocyte# 0.66 X10^3/uL; Monocyte% 5.9 % (0-10); NRBC Flagged by Analyzer 0 % (0-5); Neutrophil # 7.58 X10^3/uL (2.7-7.7); Neutrophil % 67.7 % (47-70); Platelet Count 334 K/mm3 (150-450); Red Blood Count 5.35 M/mm3 (4.2-5.4); White Blood Count 11.2 K/mm3 (4.4-11.0)
[2022-01-30 00:12] VITALS: PULSE 72; RESP 17; O2SAT 97
[2022-01-30 00:27] VITALS: PULSE 77; RESP 16; O2SAT 98
[2022-01-30 01:11] LABS: Reflex Troponin-HS? (from REC) Y
== END 2022-01-30 00:28 | disposition home or self-care (01) ==
PROVIDERS: Emergency Provider Emergency Medicine; Visit Provider Emergency Medicine
DX: R07.9 Chest pain, unspecified (principal); I49.3 Ventricular premature depolarization; F41.9 Anxiety disorder, unspecified; E66.9 Obesity, unspecified; F17.210 Nicotine dependence, cigarettes, uncomplicated; Z68.34 Body mass index [BMI] 34.0-34.9, adult; Z79.899 Other long term (current) drug therapy; Z82.49 Family history of ischemic heart disease and other diseases of the circulatory system
CPT/HCPCS: 71046; 80048; 84484; 85025; 93005; 99284; A4216

== ENCOUNTER 2022-10-15 17:25 | Emergency (ER) | payer MEDICARE, MEDICAID, SELFPAY ==
[2022-10-15 17:25] VITALS: BP 175/84; PULSE 55; RESP 16; TEMP 36.8; O2SAT 98; BMI 33.1
--- NOTE | 2022-10-15 18:01 | EX.ED.VIS.EY ---
HPI History of Present Illness Chief Complaint: Eye Problem Narrative Narrative: Patient complains that her eye lid is not getting better. She states she started with little redness and swelling of her right upper eyelid a week ago. She was seen in urgent care 3 days ago. She was given erythromycin ointment. She used erythromycin ointment a single time and states that her symptoms did not get better. Today they seem a little bit more swollen so she started using it again and she has used it 3 times today. She states it did not fix it. All of her symptoms are not the eye but it is the upper eyelid on the lateral aspect. She states it swollen is little bit tender. No visual complaints. She states she sees normally. But she does have some increased discharge. She has no headache. She has no nausea vomiting. She has no trauma to the eye. [facility] Medical History Bipolar disorder Chronic hypertension Chronic hypertension affecting Gestational diabetes mellitus (GDM) Home Medications acetaminophen 500 mg tablet 1,000 mg PO Q8H PRN Mild Pain (-08/19) 01/20/18 [Rx Last Taken Unknown] diazepam 5 mg tablet 5 mg PO Q8 PRN Muscle Spasm #12 tabs 08/17/19 [Rx Last Taken Unknown] prednisone 20 mg tablet 60 mg PO DAILY #15 tabs 08/17/19 [Rx Last Taken Unknown] doxycycline monohydrate 100 mg capsule 100 mg PO BID #20 CAPSULES 10/15/22 [Rx Last Taken Unknown] Allergy/AdvReac Type Severity Reaction Status Date / Time cefazolin sodium [From [facility]] Allergy Hives Verified 10/15/22 17:27 Surgical History Previous section Social History Smoking Status: Current every day smoker tobacco type: cigarettes substance use type: marijuana ROS ROS ED Constitutional Constitutional ED: Denies chills or fever(s) Eyes Eyes: Reports other Details: See history of present illness ; Denies blurry vision, change in vision or diplopia ENT ENT ED: Denies rhinorrhea or sore throat Gastrointestinal Gastrointestinal: Denies nausea or vomiting Neurologic Neurologic: Denies headache(s) Psychiatric Psychiatric: Reports anxiety Hematologic/Lymphatic Hematologic/Lymphatic: Denies easy bleeding, easy bruising or lymphadenopathy Allergic/Immunologic Allergic/Immunologic ED: Denies urticaria EXAM Physical Exam Narrative Exam Narrative: Patient awake alert no acute distress. No trouble walking in the room. HEENT shows no facial swelling erythema rash or vesicles. No sinus tenderness. Eyes: There is no pain with range of motion of her eye. The eye itself actually is not red or inflamed. She does have mild increased discharge. The lower lid is normal. The upper lid has some erythema and swelling but is almost all laterally. I can touch the upper lid medially and she does not hurt but if I touch the lateral aspect it hurts. When I rolled the lid up I can see development of a stye under this area. I think this is because of her symptoms. Breathing is easy and unlabored Patient awake alert and appropriate. Const Vital Signs: 10/15/22 17:25 Temperature 98.2 F Temperature Source Temporal Pulse Rate 55 L Respiratory Rate 16 Blood Pressure 175/84 H Blood Pressure Mean 114 Pulse Ox 98 Oxygen Delivery Method Room Air MDM MDM MDM Narrative Medical decision making narrative: Patient will continue her antibiotic ointment. I explained that she needs to take this as prescribed every day. 1 dose will not get her symptoms better. I have concerns if she will do this. With that and the slight redness of the upper lid I will start her on oral antibiotics 2. She is allergic to Ancef so I will use doxycycline. We discussed reasons to return which would be pain vomiting headache or any visual change. We also discussed warm compresses how often and how to do it. Discharge Plan Triage Chief Complaint: Eye Problem ED Provider: Dioni Paiz Dx/Rx/DC Orders Clinical Impression: Hordeolum internum of right upper eyelid Instructions: ED Sty Prescriptions: New doxycycline monohydrate 100 mg capsule 100 mg PO BID Qty: 20 0RF No Action acetaminophen 500 MG tablet 1,000 mg PO Q8H PRN (Reason: Mild Pain (-08/19)) 0RF prednisone 20 MG tablet 60 mg PO DAILY Qty: 15 0RF diazepam 5 MG tablet 5 mg PO Q8 PRN (Reason: Muscle Spasm) Qty: 12 0RF Primary Care Provider: Tavo Garcia Referrals: Alisha Nunez MD [Med Staff - Active Staff] - 1-2 Days if not improving Tavo Garcia MD [Primary Care Provider] - Activity Restrictions/Additional Instructions: Continue your antibiotic ointment. Use warm compresses as discussed. Disposition Disposition: Home, Self Care
[2022-10-15] MEDS: Doxycycline 100 MG CAPSULE PO (18:15)
== END 2022-10-15 18:17 | disposition home or self-care (01) ==
PROVIDERS: Emergency Provider Emergency Medicine; PCP Internal Medicine; Visit Provider Emergency Medicine
DX: H00.021 Hordeolum internum right upper eyelid (principal); F17.210 Nicotine dependence, cigarettes, uncomplicated; F12.90 Cannabis use, unspecified, uncomplicated
CPT/HCPCS: 99283